=== PATIENT | female | born 1965 | race Caucasian/White ===

== ENCOUNTER 2018-07-03 10:54 | Inpatient (IN) | payer OTHER ==
[2018-07-03] MEDS ORDERED: ONDANSETRON DISINTEGRATING 4 MG TAB ONE (11:03)
[2018-07-03] MEDS ORDERED: NS 1,000 ML IV ONE ×2 (11:19)
[2018-07-03] MEDS ORDERED: ONDANSETRON 4 MG/2 ML VIAL IVP ONE (11:19)
--- NOTE | 2018-07-03 11:19 | EDPHY ---
H & P Stated Complaint: UC - Abd Pain x 3 weeks Source: Patient Exam Limitations: No limitations - Personal History LMP (Females 10-55): Post Menopausal Current Tetanus Diphtheria and Acellular Pertussis (TDAP): Yes - Medical/Surgical History Hx Asthma: No Hx Chronic Respiratory Disease: No Hx Diabetes: No Hx Cardiac Disease: No Hx Renal Disease: No Hx Cirrhosis: No Hx Alcoholism: No Hx HIV/AIDS: No Hx Splenectomy or Spleen Trauma: No Other PMH: Colitis - Social History Smoking Status: Never smoked Time Seen by Provider: 07/03/18 11:11 HPI/ROS: HPI: This is a 53-year-old female who presents with Chief Complaint: Abdominal pain, rectal bleeding Location: Generalized abdomen Quality: Pain and rectal bleeding Duration: Since June 25 Signs and Symptoms: no fever, no nausea, no vomiting, no hematemesis, + blood in stool, no abdominal bloating, + diarrhea, no back pain, no urinary symptoms, no vaginal bleeding/discharge, no indigestion, no chest pain, no shortness of breath Timing: Acute on chronic Severity: Moderate to severe Context: Patient has a history of ulcerative colitis that was diagnosed in her 30s but had been in remission for 7 years recently out of remission last year presents with abdominal pain that is generalized in nature, cramping associated with loose stools approximately 10-15 per day and blood in her stool. Patient was in [place] over the holiday and was seen at [facility] on June 25, 2018. She has her discharge paperwork with her which I reviewed that shows stable laboratory studies she was given IV Solu-Medrol 125 mg and placed on prednisone [address] abdomen and pelvis scan was ordered and showed colitis but no obstruction. Patient reports that she has been taking prednisone 50 mg with no improvement in her symptoms. She called her continuous conveyor screen drier, Dr. Coleman, yesterday who increased her prednisone to 60 mg which her 1st dose was yesterday. Patient reports that she had a terrible night and was up all night with abdominal pain and cramping with 15 bloody stools. She is currently in the process of her insurance company approving Remicade. Comment: ROS: A comprehensive 10 system review of systems is otherwise negative aside from elements mentioned in the history of present illness. MEDICAL/SURGICAL/SOCIAL HISTORY: Medical history: Ulcerative colitis. Does not take any regular medications. Patient is postmenopausal Surgical history: Denies Social history: Nonsmoker. Employed. Family history noncontributory. CONSTITUTIONAL: Nontoxic-appearing, polite and cooperative female, awake and alert, no obvious distress HEENT: Atraumatic and normocephalic, PERRL, EOMI. Nares patent; no rhinorrhea; no nasal mucosal edema. Tympanic membranes clear. Oropharynx clear, no exudate and moist pink mucosa. Airway patent. No lymphadenopathy. No meningismus. Cardiovascular: Normal S1/S2, regular rate, regular rhythm, without murmur rub or gallop. PULMONARY/CHEST: Symmetrical and nontender. Clear to auscultation bilaterally. Good air movement. No accessory muscle usage. ABDOMEN: Soft, nondistended, mild generalized tenderness with hyperactive bowel sounds x4 quadrants, no rebound, no guarding, no peritoneal signs, no masses or organomegaly. No CVAT. EXTREMITIES: 2/2 pulses, strength 5/5, no deformities, no clubbing, no cyanosis or edema. NEUROLOGICAL: no focal neuro deficits. GCS 15. SKIN: Warm and dry, no erythema. no rash. Good capillary refill. (Emma Martin) Constitutional: Initial Vital Signs Temperature (C) 36.7 C 07/03/18 10:57 Heart Rate 95 07/03/18 10:57 Respiratory Rate 18 07/03/18 10:57 Blood Pressure 108/71 07/03/18 10:57 O2 Sat (%) 95 07/03/18 10:57 O2 Delivery Mode Room Air Allergies/Adverse Reactions: gluten [Gluten] Allergy (Intermediate, Verified 07/03/18 10:55) lactose [Lactose] Allergy (Intermediate, Verified 07/03/18 10:55) Penicillins Allergy (Intermediate, Verified 07/03/18 10:55) RASH AND SWELLING Sulfa (Sulfonamide Antibiotics) Allergy (Intermediate, Verified 07/03/18 10:55) EXTREME SWELLING Home Medications: Medication Instructions Recorded predniSONE [predniSONE] 30 mg PO BID@0630,13 07/03/18 Medical Decision Making ED Course/Re-evaluation: Vital signs reviewed and stable upon arrival. Placed on cardiac specialist. IV access and laboratory studies ordered. Will not obtain CT abdomen and pelvis scan as 1 already performed on 06/25. Will have radiology load the CT scan into the system. Given 2 L normal saline, IV morphine 2 mg, IV Zofran 4 mg, IV Solu-Medrol 125 mg 1130: I-STAT labs reviewed and show stable H&H with no acute kidney injury, no electrolyte imbalance. WBC 15 K likely reactive to steroid 1131: ED decision to consult for admission for failed outpatient treatment with ulcerative colitis flare. Spoke with Denise who kindly agrees to admit patient under the care of Dr. Cervantes. This patient was seen under the supervision of my secondary supervising physician. I evaluated care for this patient independently. Discussed this patient with Dr. Ashley who did not see the patient. (Emma Martin) I did not see this patient while she was in the emergency department. However her care was discussed with the PA while the patient was in the department. I agree with treatment plan and management (Florentino Ashley) Differential Diagnosis: Abdominal pain including but not limited to appendicitis, cholecystitis, gastritis and urinary tract infection. (Emma Martin) - Data Points Laboratory Results: Laboratory Results 07/03/18 11:20 07/03/18 11:20 07/03/18 07/03/18 07/03/18 11:24 11:20 11:20 WBC RBC Hgb POC Hgb 14.3 gm/dL gm/dL (12.6-16.3) Hct POC Hct 42 % % (38-47) MCV MCH MCHC RDW Plt Count MPV Neut % (Auto) Lymph % (Auto) Green % (Auto) Eos % (Auto) Baso % (Auto) Nucleat RBC Rel Count Absolute Neuts (auto) Absolute Lymphs (auto) Absolute Monos (auto) Absolute Eos (auto) Absolute Basos (auto) Absolute Nucleated RBC Immature Gran % Seg Neutrophils % Band Neutrophils % Lymphocytes % Monocytes % Eosinophils % Basophils % Metamyelocytes % Myelocytes % Promyelocytes % Blast Cells % Immature Gran # Absolute Seg Neuts Absolute Band Neuts Absolute Lymphocytes Absolute Monocytes Absolute Eosinophils Absolute Basophils Absolute Metamyelocyte Absolute Myelocytes Absolute Promyelocytes Absolute Plasma Cells Nucleated RBCs Absolute Blast Cells Plasma Cells % Platelet Estimate POC Sodium 135 mEq/L mEq/L (135-145) Sodium 133 mEq/L L mEq/L (135-145) POC Potassium 4.5 mEq/L mEq/L (3.3-5.0) Potassium 4.6 mEq/L mEq/L (3.5-5.2) POC Chloride 101 mEq/L mEq/L (97-110) Chloride 103 mEq/L mEq/L (97-110) Carbon Dioxide 23 mEq/l mEq/l (22-31) Anion Gap 7 mEq/L mEq/L (6-14) POC BUN 9 mg/dL mg/dL (7-23) BUN 11 mg/dL mg/dL (7-23) Creatinine 0.7 mg/dL mg/dL (0.6-1.0) POC Creatinine 0.6 mg/dL mg/dL (0.6-1.0) Estimated GFR > 60 Glucose 125 mg/dL H mg/dL (70-100) POC Glucose 129 mg/dL H mg/dL (70-100) Calcium 8.6 mg/dL mg/dL (8.5-10.4) Total Bilirubin 0.5 mg/dL mg/dL (0.1-1.4) Conjugated Bilirubin 0.3 mg/dL mg/dL (0.0-0.5) Unconjugated Bilirubin 0.2 mg/dL mg/dL (0.0-1.1) AST 19 IU/L IU/L (14-46) ALT 23 IU/L IU/L (9-52) Alkaline Phosphatase 49 IU/L IU/L (38-126) Total Protein 6.1 g/dL L g/dL (6.3-8.2) Albumin 3.2 g/dL L g/dL (3.5-5.0) Lipase 19 IU/L L IU/L (23-300) Beta HCG, Qual NEGATIVE 07/03/18 11:20 WBC 15.28 10^3/uL H 10^3/uL (3.80-9.50) RBC 4.34 10^6/uL 10^6/uL (4.18-5.33) Hgb 13.5 g/dL g/dL (12.6-16.3) POC Hgb Hct 40.0 % % (38.0-47.0) POC Hct MCV 92.2 fL fL (81.5-99.8) MCH 31.1 pg pg (27.9-34.1) MCHC 33.8 g/dL g/dL (32.4-36.7) RDW 11.7 % % (11.5-15.2) Plt Count 331 10^3/uL 10^3/uL (150-400) MPV 8.6 fL L fL (8.7-11.7) Neut % (Auto) Not Reported Lymph % (Auto) Not Reported Green % (Auto) Not Reported Eos % (Auto) Not Reported Baso % (Auto) Not Reported Nucleat RBC Rel Count Not Reported Absolute Neuts (auto) Not Reported Absolute Lymphs (auto) Not Reported Absolute Monos (auto) Not Reported Absolute Eos (auto) Not Reported Absolute Basos (auto) Not Reported Absolute Nucleated RBC Not Reported Immature Gran % Not Reported Seg Neutrophils % 85.9 % % Band Neutrophils % 4.0 % % Lymphocytes % 2.0 % % Monocytes % 8.1 % % Eosinophils % 0.0 % % Basophils % 0.0 % % Metamyelocytes % 0.0 % % Myelocytes % 0.0 % % Promyelocytes % 0.0 % % Blast Cells % 0.0 % % Immature Gran # Not Reported Absolute Seg Neuts 13.13 10^3/uL H 10^3/uL (1.70-6.50) Absolute Band Neuts 0.61 10^3/uL 10^3/uL (0.00-0.70) Absolute Lymphocytes 0.31 10^3/uL L 10^3/uL (1.00-3.00) Absolute Monocytes 1.24 10^3/uL H 10^3/uL (0.30-0.80) Absolute Eosinophils 0.00 10^3/uL L 10^3/uL (0.03-0.40) Absolute Basophils 0.00 10^3/uL L 10^3/uL (0.02-0.10) Absolute Metamyelocyte 0.00 10^3/mL 10^3/mL (0.00-0.00) Absolute Myelocytes 0.00 10^3/mL 10^3/mL (0.00-0.00) Absolute Promyelocytes 0.00 10^3/uL 10^3/uL (0.00-0.00) Absolute Plasma Cells 0.00 10^3/uL 10^3/uL (0.00-0.00) Nucleated RBCs 0 /100 WBC /100 WBC (0-0) Absolute Blast Cells 0.00 10^3/uL 10^3/uL (0.00-0.00) Plasma Cells % 0.0 % % Platelet Estimate ADEQUATE (ADEQ) POC Sodium Sodium POC Potassium Potassium POC Chloride Chloride Carbon Dioxide Anion Gap POC BUN BUN Creatinine POC Creatinine Estimated GFR Glucose POC Glucose Calcium Total Bilirubin Conjugated Bilirubin Unconjugated Bilirubin AST ALT Alkaline Phosphatase Total Protein Albumin Lipase Beta HCG, Qual Medications Given: Discontinued Medications Sodium Chloride (Ns) 1,000 mls @ 0 mls/hr IV EDNOW ONE; Wide Open PRN Reason: Protocol Stop: 07/03/18 11:20 Last Admin: 07/03/18 11:30 Dose: 1,000 mls Sodium Chloride (Ns) 1,000 mls @ 0 mls/hr IV EDNOW ONE; Wide Open PRN Reason: Protocol Stop: 07/03/18 11:20 Last Admin: 07/03/18 11:37 Dose: 1,000 mls Methylprednisolone Sodium Succinate (Solu-Medrol) 125 mg IVP EDNOW ONE Stop: 07/03/18 11:21 Last Admin: 07/03/18 11:30 Dose: 125 mg Morphine Sulfate (Morphine) 2 mg IVP EDNOW ONE Stop: 07/03/18 11:20 Last Admin: 07/03/18 11:30 Dose: 2 mg Ondansetron HCl (Zofran) 4 mg IVP EDNOW ONE Stop: 07/03/18 11:20 Last Admin: 07/03/18 11:30 Dose: 4 mg Point of Care Test Results: Chemistry 07/03/18 11:24 POC Sodium 135 mEq/L mEq/L (135-145) POC Potassium 4.5 mEq/L mEq/L (3.3-5.0) POC Chloride 101 mEq/L mEq/L (97-110) POC BUN 9 mg/dL mg/dL (7-23) POC Creatinine 0.6 mg/dL mg/dL (0.6-1.0) POC Glucose 129 mg/dL H mg/dL (70-100) ISTAT H&H 07/03/18 11:24 POC Hgb 14.3 gm/dL gm/dL (12.6-16.3) POC Hct 42 % % (38-47) Departure - Departure Disposition: [facility] In[facility] Acute Clinical Impression: Failure of outpatient treatment Ulcerative colitis, acute Qualifiers: Digestive disease complication type: with rectal bleeding Qualified Code(s): K51.911 - Ulcerative colitis, unspecified with rectal bleeding Condition: Fair
[2018-07-03] MEDS ORDERED: methylPREDNISolone SOD SUCC 125 MG/2 ML VIAL IVP ONE (11:20)
[2018-07-03 11:34] LABS: PLATELET COUNT 331 10^3/uL (150-400)
[2018-07-03] MEDS ORDERED: ONDANSETRON 4 MG/2 ML VIAL IVP PRN (13:53)
[2018-07-03] MEDS ORDERED: ACETAMINOPHEN 325 MG TAB PO PRN (13:53)
[2018-07-03] MEDS ORDERED: PROMETHAZINE HCL 25 MG/ML INJ IVP PRN (13:53)
[2018-07-03] MEDS ORDERED: HYDROmorphONE/DILAUDID 1 MG/ML INJ IVP PRN (13:53)
[2018-07-03] MEDS ORDERED: PROMETHAZINE HCL 25 MG TAB PO PRN (13:53)
[2018-07-03] MEDS ORDERED: HYDROCODONE/APAP 5/325 TAB PO PRN (13:53)
--- NOTE | 2018-07-03 15:10 | PDGENHP ---
History and Physical - Chief Complaint abdominal pain, bloody stool - History of Present Illness 53 yo female with h/o ulcerative colitis presents to ED with frequent bloody stools and abdominal pain. She was diagnosed with UC in her 30's. She spent several years in remission, but has had recurrent symptoms, most recently starting while on vacation in [place]. She was seen in an ED there and started on oral Prednisone. Upon return, she followed up with her power washer, Dr. Coleman, who increased her Prednisone to 30 mg twice daily. She continues to have multiple bloody stools. She denies fevers or chills. She denies vomiting, though has a bit of nausea. She has plans to start Humira soon, but aims to get a 2nd opinion at [facility] ([place], [place]) and has an appointment scheduled for next week. In the ED, she received 125 mg IV solumedrol and notes some improvement in her pain and stool frequency. She is admitted for further management. History Information - Allergies/Home Medication List Allergies/Adverse Reactions: gluten [Gluten] Allergy (Intermediate, Verified 07/03/18 10:55) lactose [Lactose] Allergy (Intermediate, Verified 07/03/18 10:55) Penicillins Allergy (Intermediate, Verified 07/03/18 10:55) RASH AND SWELLING Sulfa (Sulfonamide Antibiotics) Allergy (Intermediate, Verified 07/03/18 10:55) EXTREME SWELLING Home Medications: predniSONE [predniSONE] 30 mg PO BID@0630,13 07/03/18 [Last Taken 07/03/18 06: 30 30 MG] I have personally reviewed and updated: family history, medical history, social history, surgical history - Past Medical History Additional medical history: chronic blepharitis - Surgical History Reports: no pertinent surgical hx - Family History Positive for: non-pertinent - Social History Smoking Status: Never smoked Alcohol Use: None Drug Use: None Additional social history: Lives independently. 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 Review of Systems Review of Systems: ROS: 10pt was reviewed & negative except for what was stated in HPI & below Physical Exam Physical Exam: Temp Pulse Resp BP Pulse Ox 36.9 C 83 16 134/59 H 93 07/03/18 13:53 07/03/18 13:53 07/03/18 13:53 07/03/18 13:53 07/03/18 13:53 Constitutional: no apparent distress Eyes: PERRL Ears, Nose, Mouth, Throat: moist mucous membranes Cardiovascular: regular rate and rhythym, systolic murmur Respiratory: no respiratory distress, clear to auscultation Gastrointestinal: normoactive bowel sounds, other (soft, mild distention, mild TTP diffusely, no r/r/g, +BS) Skin: warm Musculoskeletal: full muscle strength Neurologic: AAOx3 Psychiatric: interacting appropriately Lab Data & Imaging Review 07/03/18 11:20 07/03/18 11:20 WBC 15.28 10^3/uL (3.80-9.50) H 07/03/18 11:20 RBC 4.34 10^6/uL (4.18-5.33) 07/03/18 11:20 Hgb 13.5 g/dL (12.6-16.3) 07/03/18 11:20 POC Hgb 14.3 gm/dL (12.6-16.3) 07/03/18 11:24 Hct 40.0 % (38.0-47.0) 07/03/18 11:20 POC Hct 42 % (38-47) 07/03/18 11:24 MCV 92.2 fL (81.5-99.8) 07/03/18 11:20 MCH 31.1 pg (27.9-34.1) 07/03/18 11:20 MCHC 33.8 g/dL (32.4-36.7) 07/03/18 11:20 RDW 11.7 % (11.5-15.2) 07/03/18 11:20 Plt Count 331 10^3/uL (150-400) 07/03/18 11:20 MPV 8.6 fL (8.7-11.7) L 07/03/18 11:20 Neut % (Auto) Not Reported 07/03/18 11:20 Lymph % (Auto) Not Reported 07/03/18 11:20 Emery % (Auto) Not Reported 07/03/18 11:20 Eos % (Auto) Not Reported 07/03/18 11:20 Baso % (Auto) Not Reported 07/03/18 11:20 Nucleat RBC Rel Count Not Reported 07/03/18 11:20 Absolute Neuts (auto) Not Reported 07/03/18 11:20 Absolute Lymphs (auto) Not Reported 07/03/18 11:20 Absolute Monos (auto) Not Reported 07/03/18 11:20 Absolute Eos (auto) Not Reported 07/03/18 11:20 Absolute Basos (auto) Not Reported 07/03/18 11:20 Absolute Nucleated RBC Not Reported 07/03/18 11:20 Immature Gran % Not Reported 07/03/18 11:20 Seg Neutrophils % 85.9 % 07/03/18 11:20 Band Neutrophils % 4.0 % 07/03/18 11:20 Lymphocytes % 2.0 % 07/03/18 11:20 Monocytes % 8.1 % 07/03/18 11:20 Eosinophils % 0.0 % 07/03/18 11:20 Basophils % 0.0 % 07/03/18 11:20 Metamyelocytes % 0.0 % 07/03/18 11:20 Myelocytes % 0.0 % 07/03/18 11:20 Promyelocytes % 0.0 % 07/03/18 11:20 Blast Cells % 0.0 % 07/03/18 11:20 Immature Gran # Not Reported 07/03/18 11:20 Absolute Seg Neuts 13.13 10^3/uL (1.70-6.50) H 07/03/18 11:20 Absolute Band Neuts 0.61 10^3/uL (0.00-0.70) 07/03/18 11:20 Absolute Lymphocytes 0.31 10^3/uL (1.00-3.00) L 07/03/18 11:20 Absolute Monocytes 1.24 10^3/uL (0.30-0.80) H 07/03/18 11:20 Absolute Eosinophils 0.00 10^3/uL (0.03-0.40) L 07/03/18 11:20 Absolute Basophils 0.00 10^3/uL (0.02-0.10) L 07/03/18 11:20 Absolute Metamyelocyte 0.00 10^3/mL (0.00-0.00) 07/03/18 11:20 Absolute Myelocytes 0.00 10^3/mL (0.00-0.00) 07/03/18 11:20 Absolute Promyelocytes 0.00 10^3/uL (0.00-0.00) 07/03/18 11:20 Absolute Plasma Cells 0.00 10^3/uL (0.00-0.00) 07/03/18 11:20 Nucleated RBCs 0 /100 WBC (0-0) 07/03/18 11:20 Absolute Blast Cells 0.00 10^3/uL (0.00-0.00) 07/03/18 11:20 Plasma Cells % 0.0 % 07/03/18 11:20 Platelet Estimate ADEQUATE (ADEQ) 07/03/18 11:20 POC Sodium 135 mEq/L (135-145) 07/03/18 11:24 Sodium 133 mEq/L (135-145) L 07/03/18 11:20 POC Potassium 4.5 mEq/L (3.3-5.0) 07/03/18 11:24 Potassium 4.6 mEq/L (3.5-5.2) 07/03/18 11:20 POC Chloride 101 mEq/L (97-110) 07/03/18 11:24 Chloride 103 mEq/L (97-110) 07/03/18 11:20 Carbon Dioxide 23 mEq/l (22-31) 07/03/18 11:20 Anion Gap 7 mEq/L (6-14) 07/03/18 11:20 POC BUN 9 mg/dL (7-23) 07/03/18 11:24 BUN 11 mg/dL (7-23) 07/03/18 11:20 Creatinine 0.7 mg/dL (0.6-1.0) 07/03/18 11:20 POC Creatinine 0.6 mg/dL (0.6-1.0) 07/03/18 11:24 Estimated GFR > 60 07/03/18 11:20 Glucose 125 mg/dL (70-100) H 07/03/18 11:20 POC Glucose 129 mg/dL (70-100) H 07/03/18 11:24 Calcium 8.6 mg/dL (8.5-10.4) 07/03/18 11:20 Total Bilirubin 0.5 mg/dL (0.1-1.4) 07/03/18 11:20 Conjugated Bilirubin 0.3 mg/dL (0.0-0.5) 07/03/18 11:20 Unconjugated Bilirubin 0.2 mg/dL (0.0-1.1) 07/03/18 11:20 AST 19 IU/L (14-46) 07/03/18 11:20 ALT 23 IU/L (9-52) 07/03/18 11:20 Alkaline Phosphatase 49 IU/L (38-126) 07/03/18 11:20 Total Protein 6.1 g/dL (6.3-8.2) L 07/03/18 11:20 Albumin 3.2 g/dL (3.5-5.0) L 07/03/18 11:20 Lipase 19 IU/L (23-300) L 07/03/18 11:20 Beta HCG, Qual NEGATIVE 07/03/18 11:20 Assessment & Plan Assessment: Failure of outpatient treatment (Acute) Ulcerative colitis, acute (Acute)
--- NOTE | 2018-07-03 17:40 | PDMN ---
Medical Necessity Medical necessity: Pt meets inpt criteria per MD order and [facility] M-565, Inflammatory Bowel Disease, A-2 days. 53 y/o w/hx ulcerative colitis presents w/ frequent and persistent bloody stools and abd pain, admitted w/acute ulc colitis flare w/failure of outpt treatment. IV solumedrol, GI consult. Est LOS> 2MN for management of UC flare despite treatment in out setting.
[2018-07-03] MEDS: methylPREDNISolone SOD SUCC 125 MG/2 ML VIAL IVP SCH ×2 (18:15→23:26)
[2018-07-04 05:25] LABS: PLATELET COUNT 290 10^3/uL (150-400)
[2018-07-04] MEDS: methylPREDNISolone SOD SUCC 125 MG/2 ML VIAL IVP SCH ×4 (06:18→23:10)
--- NOTE | 2018-07-04 10:27 | ASMTCMCOM ---
CM Note CM Note Notes: Pt is a 53 y/o female admitted for bloody stools and abdominal pain. Pt has a hx of ulcerative colitis. Pt will most likely d/c independent when medically stable. GI has been consulted. No therapies ordered at this time. CM available for changes. Plan: Independent Date Signed: 07/04/2018 10:26 AM Electronically Signed By:NAVJOT Rojas
--- NOTE | 2018-07-04 15:13 | HOSPPROG ---
Hospitalist Progress Note Assessment/Plan: A&P: Acute UC flare - Some improvement, less blood but still frequent watery stools. GI PCR neg. -Cont Solumedrol, IVF's, pain control -GI consult pending. Leukocytosis - suspect related to recent steroid use plus possible stress response to above, afebrile. Follow Full code Dispo - cont inpt Subjective: Pt feels much better, but still having frequent watery stools, less blood. Tolerating po and taking quite a bit of liquids. Less pain. No fevers. No N/V. Objective: Vital Signs Temp Pulse Resp BP Pulse Ox 36.4 C 77 16 125/69 H 94 07/04/18 12:00 07/04/18 12:00 07/04/18 12:00 07/04/18 12:00 07/04/18 12:00 Microbiology 07/03/18 18:22 Gastrointestinal Tract Panel (PCR) - Final Stool No Organism Detected By Pcr Laboratory Results 07/04/18 05:10 07/03/18 07/04/18 07/05/18 05:59 05:59 05:59 Intake Total 3530 375 Balance 3530 375 - Physical Exam Constitutional: no apparent distress Eyes: PERRL Ears, Nose, Mouth, Throat: moist mucous membranes Cardiovascular: regular rate and rhythym, no murmur, rub, or gallop Respiratory: no respiratory distress, clear to auscultation Gastrointestinal: other (soft, mild distention, mild diffuse TTP, no r/r/g, +BS) Skin: warm Musculoskeletal: full muscle strength Neurologic: AAOx3 Psychiatric: interacting appropriately ICD10 Worksheet Patient Problems: Problems Problem Status Onset Failure of outpatient treatment Acute Ulcerative colitis, acute Acute
[2018-07-04] MEDS ORDERED: NS 1,000 ML IV SCH (15:30)
--- NOTE | 2018-07-04 21:27 | SOAPPROG ---
SOAP Progress Note Assessment/Plan: Assessment: Plan: 07/04/18 21:26 GI note Patient seen and examined .See dictated note for details. Objective: Vital Signs Temp Pulse Resp BP Pulse Ox 36.7 C 74 16 126/72 H 96 07/04/18 19:51 07/04/18 19:51 07/04/18 19:51 07/04/18 19:51 07/04/18 19:51 Microbiology 07/03/18 18:22 Gastrointestinal Tract Panel (PCR) - Final Stool No Organism Detected By Pcr Laboratory Results 07/04/18 05:10 07/03/18 07/04/18 07/05/18 05:59 05:59 05:59 Intake Total 3530 875 Balance 3530 875 ICD10 Worksheet Patient Problems: Problems Problem Status Onset Ulcerative colitis, acute Acute Failure of outpatient treatment Acute
[2018-07-05] MEDS: ONDANSETRON DISINTEGRATING 4 MG TAB PO PRN ×2 (05:29→14:01)
[2018-07-05] MEDS: methylPREDNISolone SOD SUCC 125 MG/2 ML VIAL IVP SCH ×4 (05:30→23:21)
[2018-07-05 06:17] LABS: PLATELET COUNT 308 10^3/uL (150-400)
--- NOTE | 2018-07-05 10:06 | GCON ---
DATE OF CONSULTATION: 07/04/2018 REFERRING PHYSICIAN: Ksenia Cervantes MD REASON FOR CONSULTATION: Ulcerative colitis flare. CHIEF COMPLAINT: Bloody stools. HISTORY OF PRESENT ILLNESS: The patient is a 53-year-old female with a history of longstanding ulcerative colitis who presents to [facility] with complaints of abdominal pain, as well as bloody stools. The patient was initially diagnosed with ulcerative colitis approximately 20 years ago. She believes that she had pancolitis, however, did have a recent colonoscopy by her hardware engineering manager, which showed significant disease mainly in her left colon. In the past, she has been on mesalamine products, but this has caused her significant diarrhea. She has been on prednisone for multiple months last year with little relief of her symptoms. She was planning to start Humira per her hardware engineering manager. She has not been on immunomodulator therapy. She states she is going to the bathroom multiple times each day and night. She believes it is well above 20 times each day. There is blood in 100% of her bowel movements. She also complains of a crampy pain in her lower quadrants, especially on touch. She believes that going to the bathroom may make this better. She also complains of nausea. Her weight has been stable. Her diarrhea is exacerbated by oral intake. I am being asked by Dr. Cervantes to evaluate the patient in consultation regarding her ulcerative colitis flare. PAST MEDICAL HISTORY: 1. Ulcerative colitis. 2. Chronic blepharitis. PAST SURGICAL HISTORY: . ALLERGIES: Gluten, lactose, penicillin, sulfa. MEDICATIONS: Prednisone 30 mg twice a day. FAMILY HISTORY: No history of inflammatory bowel disease. SOCIAL HISTORY: No history of alcohol or tobacco use. REVIEW OF SYSTEMS: A 12-point comprehensive review of systems was asked. Pertinent positives and negatives per HPI. PHYSICAL EXAM: VITAL SIGNS: Blood pressure 122/75, pulse 90, respirations 12, temperature 36.4. GENERAL: Awake, alert, oriented, in no distress. HEENT: Anicteric. Moist mucosa. NECK: No JVD. CARDIOVASCULAR: Regular rate and rhythm, positive S1, S2. No murmurs or gallops are appreciated. LUNGS: Clear to auscultation bilaterally, without wheezes, rales or rhonchi. ABDOMEN: Mild tenderness, especially in the left lower quadrant, soft. Minimal distention. Positive bowel sounds. No guarding. No rebound. EXTREMITIES: No cyanosis, clubbing, edema. NEUROLOGIC: 2 through grossly intact. PSYCH: Normal affect. SKIN: No rash. LYMPH: No lymphadenopathy. LABORATORY DATA: WBCs 16.57, hemoglobin 12.2, hematocrit 36.1, platelets 290. Sodium 135, potassium 4.5, glucose 125, total bilirubin 0.5, conjugated bilirubin 0.3, AST 19, ALT 23, lipase 19. Beta hCG negative. ASSESSMENT AND PLAN: 1. Diarrhea- with significant blood. C. Dif negative. Suspect ulcerative colitis flare. Has had a gavi outpatient course and has been on high-dose prednisone, with minimal relief of her symptoms. Humira as an outpatient planned. At this time, recommend continue IV steroids for 48, but optimally 72 hours. She has had significant improvement on the IV steroids during her stay. If she does not continue to improve, would consider flexible sigmoidoscopy for evaluation of disease activity, as well as to rule out CMV colitis. Will check a sedimentation rate and CRP. She is C diff negative. Advance diet slowly. Can consider starting loading dose Humira as inpatient. /[id number]/MODL MTDD
--- NOTE | 2018-07-05 13:44 | HOSPPROG ---
Hospitalist Progress Note Assessment/Plan: A&P: Acute UC flare - Some improvement, less blood but still frequent watery stools. GI PCR neg. -Cont Solumedrol, IVF's, pain control -GI consult pending. Leukocytosis - suspect related to recent steroid use plus possible stress response to above, afebrile. Follow Full code Dispo - cont inpt Subjective: Pt had a rough night. Reports increased pain and nausea with some retching, but no vomiting. No more blood in stool, but continues to have watery stools, which she thinks look more like stool today. No fevers. Objective: Vital Signs Temp Pulse Resp BP Pulse Ox 36.3 C 63 16 104/49 L 94 07/05/18 12:00 07/05/18 12:00 07/05/18 12:00 07/05/18 12:00 07/05/18 12:00 Laboratory Results 07/05/18 05:16 07/05/18 05:16 07/04/18 07/05/18 07/06/18 05:59 05:59 05:59 Intake Total 3530 1375 Balance 3530 1375 - Physical Exam Constitutional: no apparent distress Eyes: PERRL Ears, Nose, Mouth, Throat: moist mucous membranes Cardiovascular: regular rate and rhythym Respiratory: no respiratory distress, clear to auscultation Gastrointestinal: other (soft, minimal distention, mild TTP diffusely, no r/r/g , +BS) Skin: warm Musculoskeletal: full muscle strength Neurologic: AAOx3 Psychiatric: interacting appropriately ICD10 Worksheet Patient Problems: Problems Problem Status Onset Failure of outpatient treatment Acute Ulcerative colitis, acute Acute
--- NOTE | 2018-07-05 20:20 | SOAPPROG ---
SOAP Progress Note Assessment/Plan: Assessment: Plan: 07/04/18 21:26 GI note Patient seen and examined .See dictated note for details. 07/05/18 20:17 A/P 1. Ulcerative colitis- pancolitis. Failed high patient oral steroids. On IV solumedrol and improving slowly. Recommend to continue IV steroids for 72 hours. Can consider starting Humira as inpatient? D/w patient. She states that she has had testing for the hepatitis, tb? etc. She will try to obtain the results through the [employer] portal. Tolerating diet. Subjective: cc: Follow up colitis Had bad night. No recent BM in morning or afternoon. Objective: Vital Signs Temp Pulse Resp BP Pulse Ox 36.4 C 69 16 128/89 H 97 07/05/18 16:00 07/05/18 16:00 07/05/18 16:00 07/05/18 16:00 07/05/18 16:00 Laboratory Results 07/05/18 05:16 07/05/18 05:16 07/04/18 07/05/18 07/06/18 05:59 05:59 05:59 Intake Total 3530 1375 1999 Balance 3530 1375 1999 Physical Exam - Physical Exam General Appearance: alert, no apparent distress EENT: No scleral icterus (R), No scleral icterus (L) Respiratory: lungs clear, normal breath sounds Cardiac/Chest: regular rate, rhythm Abdomen: non-tender, soft, No distended, No guarding, No rebound Neuro/Psych: alert, normal mood/affect, oriented x 3 ICD10 Worksheet Patient Problems: Problems Problem Status Onset Failure of outpatient treatment Acute Ulcerative colitis, acute Acute
[2018-07-06] MEDS: methylPREDNISolone SOD SUCC 125 MG/2 ML VIAL IVP SCH ×2 (06:27→12:05)
[2018-07-06] MEDS: ONDANSETRON DISINTEGRATING 4 MG TAB PO PRN ×2 (07:31→12:13)
[2018-07-06] MEDS ORDERED: ADALIMUMAB 80 MG/0.8 ML SC ONE (13:11)
--- NOTE | 2018-07-06 13:23 | SOAPPROG ---
SOAP Progress Note Assessment/Plan: Assessment: Ulcerative Colitis. Clinically improving on IV solumedrol Less diarrhea, less blood and less cramping. She has been per-authorized for Humira as an outpatient. She has had negative TB testing and negative testing for HBV. she was scheduled to get her loading dose of Humira on Sunday. Will go ahead and give her loading dose today. D/C IV solumedrol, start on PO prednisone with taper and advance diet. Plan: 1. D/c IV solumderol 2. Start PO prednisone with taper 40 mg a day and taper by 5 mg every 7 days until off. 3. Advance to low residue diet. 4. Loading does of Humira, 160 mg x 1 then 80 mg on day 15 then 40 mg every 2 weeks 5. Patient is scheduled to see PA in our practice this week 6. If tolerating diet and PO prednisone can d/c home 07/06/18 13:16 Subjective: CC: Ulcerative Colitis. Clinically improving on IV solumderol. Less, diarrhea and less cramping Objective: Vital Signs Temp Pulse Resp BP Pulse Ox 36.6 C 63 16 115/79 96 07/06/18 11:26 07/06/18 11:26 07/06/18 11:26 07/06/18 11:26 07/06/18 11:26 Laboratory Results 07/06/18 03:51 07/05/18 05:16 07/05/18 07/06/18 07/07/18 05:59 05:59 05:59 Intake Total 1375 1999 Balance 1375 1999 Physical Exam - Physical Exam General Appearance: alert, no apparent distress Respiratory: lungs clear Cardiac/Chest: regular rate, rhythm Abdomen: normal bowel sounds, non-tender, soft, other (slight distention) Skin: normal color, warm/dry Extremities: non-tender Neuro/Psych: alert, normal mood/affect ICD10 Worksheet Patient Problems: Problems Problem Status Onset Failure of outpatient treatment Acute Ulcerative colitis, acute Acute
[2018-07-06] MEDS: predniSONE 20 MG TAB PO SCH (13:43)
--- NOTE | 2018-07-06 14:36 | HOSPPROG ---
Hospitalist Progress Note Assessment/Plan: 53 yo female with h/o ulcerative colitis presents to ED with frequent bloody stools and abdominal pain. She was diagnosed with UC in her 30's. She spent several years in remission, but has had recurrent symptoms, most recently starting while on vacation in [place]. She was seen in an ED there and started on oral Prednisone. Upon return, she followed up with her tractor sweeper driver, Dr. Coleman, who increased her Prednisone to 30 mg twice daily. She continues to have multiple bloody stools. First encounter, chart reviewed. Discussed her care w Dr Adams. *Acute UC flare - Some improvement, less blood but still frequent watery stools. -GI PCR is neg -one more dose of iv steroids tonight, then on prednisone tomorrow -to start Humira this coming Sunday *hyponatremia -mild *Leukocytosis -multifactorial, steroids and stress induced Full code Dispo - cont inpt Subjective: Paula is hoping the prednisone helps her symptoms, has no complaints. Objective: Vital Signs Temp Pulse Resp BP Pulse Ox 36.6 C 63 16 115/79 96 07/06/18 11:26 07/06/18 11:26 07/06/18 11:26 07/06/18 11:26 07/06/18 11:26 Laboratory Results 07/06/18 03:51 07/05/18 05:16 07/05/18 07/06/18 07/07/18 05:59 05:59 05:59 Intake Total 1375 1999 Balance 1375 1999 - Physical Exam Constitutional: other (thin) Eyes: PERRL Ears, Nose, Mouth, Throat: hearing normal Cardiovascular: regular rate and rhythym Respiratory: no respiratory distress Gastrointestinal: normoactive bowel sounds, soft, non-tender abdomen Skin: warm Musculoskeletal: full muscle strength Neurologic: AAOx3 Psychiatric: interacting appropriately ICD10 Worksheet Patient Problems: Problems Problem Status Onset Failure of outpatient treatment Acute Ulcerative colitis, acute Acute
[2018-07-06] MEDS ORDERED: methylPREDNISolone SOD SUCC 125 MG/2 ML VIAL IVP ONE (18:00)
[2018-07-07] MEDS: predniSONE 20 MG TAB PO SCH (08:51)
--- NOTE | 2018-07-07 08:59 | SOAPPROG ---
SOAP Progress Note Assessment/Plan: Assessment: Ulcerative Colitis. Started PO Prednisone this morning. Had 3 bloody BM's this am but overall feeling better. Plan: 1. Continue PO prednisone with taper 40 mg a day and taper by 5 mg every 7 days until off. Patient had been on 60 mg daily prior to admission. Would like to d/ c on 40 mg if increased problems as an outpatient can increase Prednisone to 60 mg daily. 2. Continue on low residue diet for 1 - 2 weeks. 3. Loading does of Humira to be started at home tomorrow, 160 mg x 1 then 80 mg on day 15 then 40 mg every 2 weeks 4. Ok for discharge. Patient is scheduled to see PA in our practice this week 07/07/18 09:01 Subjective: CC: Ulcerative Colitis Patient feels much better. Still is having some blood with BM's, but less. No abdominal pain or discomfort. Objective: Vital Signs Temp Pulse Resp BP Pulse Ox 36.6 C 58 L 16 114/66 96 07/06/18 19:52 07/06/18 19:52 07/06/18 19:52 07/06/18 19:52 07/06/18 19:52 Laboratory Results 07/06/18 03:51 07/05/18 05:16 07/06/18 07/07/18 07/08/18 05:59 05:59 05:59 Intake Total 1999 Balance 1999 Generic Name Dose Route Start Last Admin Trade Name Freq PRN Reason Stop Dose Admin Acetaminophen 650 mg 07/03/18 13:53 Tylenol PO 12/30/18 13:52 Q4HRS PRN Pain, Mild/Fever, Can Take PO Hydrocodone Bitart/Acetaminophen 1 - 2 tab 07/03/18 13:53 Raymond 5/325 PO 07/13/18 13:52 Q4HRS PRN Pain, Moderate Able to Take PO Hydromorphone HCl 0.2 - 0.4 mg 07/03/18 13:53 Dilaudid IVP 07/13/18 13:52 Q4HRS PRN Pain, Severe Unable to Take PO Ondansetron HCl 4 mg 07/03/18 13:53 Zofran IVP 12/30/18 13:52 Q4HRS PRN Nausea/Vomiting, Can't Take PO Ondansetron HCl 4 mg 07/03/18 13:53 07/06/18 12:13 Zofran Odt PO 12/30/18 13:52 4 mg Q4HRS PRN Administration Nausea/Vomiting, Use 1st Prednisone 40 mg 07/06/18 13:15 07/07/18 08:51 Prednisone PO 01/02/19 13:14 40 mg DAILY DAHLIA Administration Promethazine HCl 6.25 - 12.5 mg 07/03/18 13:53 Phenergan IVP 12/30/18 13:52 Q6HRS PRN Nausea/Vomiting, Use 2nd Promethazine HCl 12.5 - 25 mg 07/03/18 13:53 Phenergan PO 12/30/18 13:52 Q6HRS PRN Nausea/Vomiting, Use 2nd Discontinued Medications Generic Name Dose Route Start Last Admin Trade Name Freq PRN Reason Stop Dose Admin Sodium Chloride 1,000 mls @ 0 mls/hr 07/03/18 11:19 07/03/18 11:30 Ns IV 07/03/18 11:20 1,000 mls EDNOW ONE Administration Protocol Wide Open Sodium Chloride 1,000 mls @ 0 mls/hr 07/03/18 11:19 07/03/18 11:37 Ns IV 07/03/18 11:20 1,000 mls EDNOW ONE Administration Protocol Wide Open Sodium Chloride 1,000 mls @ 100 mls/hr 07/04/18 15:30 07/05/18 10:03 Ns IV 12/31/18 15:29 1,000 mls CONT DAHLIA Administration Methylprednisolone Sodium Succinate 125 mg 07/03/18 11:20 07/03/18 11:30 Solu-Medrol IVP 07/03/18 11:21 125 mg EDNOW ONE Administration Methylprednisolone Sodium Succinate 60 mg 07/03/18 18:00 07/06/18 12:05 Solu-Medrol IVP 12/30/18 17:59 60 mg Q6HRS DAHLIA Administration Methylprednisolone Sodium Succinate 60 mg 07/06/18 18:00 07/06/18 17:48 Solu-Medrol IVP 07/06/18 18:01 60 mg ONCE@1800 ONE Administration Morphine Sulfate 2 mg 07/03/18 11:19 07/03/18 11:30 Morphine IVP 07/03/18 11:20 2 mg EDNOW ONE Administration Ondansetron HCl Confirm 07/03/18 11:03 Zofran Odt Administered 07/03/18 11:04 Dose 4 mg .ROUTE .STK-MED ONE Ondansetron HCl 4 mg 07/03/18 11:19 07/03/18 11:30 Zofran IVP 07/03/18 11:20 4 mg EDNOW ONE Administration Physical Exam - Physical Exam General Appearance: alert, no apparent distress Respiratory: lungs clear, normal breath sounds Cardiac/Chest: regular rate, rhythm Abdomen: normal bowel sounds, non-tender, soft Skin: normal color, warm/dry Neuro/Psych: alert, normal mood/affect, oriented x 3 ICD10 Worksheet Patient Problems: Problems Problem Status Onset Failure of outpatient treatment Acute Ulcerative colitis, acute Acute
[2018-07-07 09:15] VITALS: BP 115/66
--- NOTE | 2018-07-07 09:23 | HOSPPROG ---
Hospitalist Progress Note Assessment/Plan: 53 yo female with h/o ulcerative colitis presents to ED with frequent bloody stools and abdominal pain. She was diagnosed with UC in her 30's. She spent several years in remission, but has had recurrent symptoms, most recently starting while on vacation in [place]. She was seen in an ED there and started on oral Prednisone. Upon return, she followed up with her insulation board calender operator, Dr. Coleman, who increased her Prednisone to 30 mg twice daily. She continues to have multiple bloody stools. *Acute UC flare - Some improvement, less blood but still frequent watery stools. -GI PCR is neg -had 3 loose bloody stools last night -to start Humira this coming Sunday *hyponatremia -mild *Leukocytosis -multifactorial, steroids and stress induced Full code Dispo - dc home, has an appt at [facility] this sun, appreciate Dr Adams Subjective: Paula is wanting to go home, still having loose stools. Objective: Vital Signs Temp Pulse Resp BP Pulse Ox 36.6 C 80 12 115/66 95 07/07/18 08:00 07/07/18 08:00 07/07/18 08:00 07/07/18 08:00 07/07/18 08:00 Laboratory Results 07/06/18 03:51 07/05/18 05:16 07/06/18 07/07/18 07/08/18 05:59 05:59 05:59 Intake Total 1999 Balance 1999 - Physical Exam Constitutional: not in pain, uncomfortable, other (thin) Eyes: PERRL Ears, Nose, Mouth, Throat: hearing normal Cardiovascular: no murmur, rub, or gallop Gastrointestinal: normoactive bowel sounds, soft, non-tender abdomen Skin: warm Musculoskeletal: full muscle strength Neurologic: AAOx3 Psychiatric: interacting appropriately ICD10 Worksheet Patient Problems: Problems Problem Status Onset Failure of outpatient treatment Acute Ulcerative colitis, acute Acute
--- NOTE | 2018-07-07 09:49 | ASMTDCNOTE ---
Case Management Discharge Discharge Order Complete? Answers: Yes Patient to Obtain Answers: via Family Medications Transportation Arranged Answers: Family/Friends Family Notified Answers: Yes Discharge Comments Notes: Discharge orders placed. CM inquired peña/ CHANEL Hester, patient to discharge home independently today with family support. Follow up scheduled with [facility]. CM available if any additional CM needs arise. Date Signed: 07/07/2018 09:48 AM Electronically Signed By:Hien Grant
--- NOTE | 2018-07-07 10:02 | GDS ---
DISCHARGE DIAGNOSES: 1. Ulcerative colitis flare. 2. Hyponatremia. 3. Leukocytosis. CONSULTATION: Dr. Taras Adams. HISTORY OF PRESENT ILLNESS: Briefly, the patient is a very nice 53-year-old female with history of u lcerative colitis. She presented to the emergency room with frequent bloody stools and abdominal richar n. She was diagnosed with UC in her 30s. She has spent many years in remission. She had recurrence of symptoms most recently when she was on vacation in [place]. She ended up in the emergency room an d was started on oral prednisone. She followed up with her customer service representative who increased her pred nisone to 30 mg twice daily, but was having continued multiple stools. She was admitted to [facility], treated with IV steroids with some improvement. She still had some loose stools t raghav. She will be discharged home today and follow up with Dr. Colon. She will start her Humira navya orrow. HOSPITAL COURSE BY PROBLEM: 1. Acute ulcerative colitis flare. Some improvement. To start Humira tomorrow. 2. Hyponatremia, mild. 3. Leukocytosis, multifactorial, associated with steroids and stress induced. DISCHARGE CONDITION: Stable. Blood pressure is 115/66, heart rate of 80, respiratory rate of 12, O2 sats on room air 95%, temperature 36.6 Celsius. MEDICATIONS AT DISCHARGE: Please see the EMR. DISCHARGE INSTRUCTIONS: 1. To continue p.o. prednisone with a taper of 40 mg a day and taper by 5 mg every 7 days until off. If she continues to have increased bloody stool, to call [facility], they may increase her p rednisone to 60 mg daily. 2. Continue a low residue diet for the next 1 to 2 weeks. 3. Her loading dose of Humira is start tomorrow. 4. To call [facility] if she has any further questions. /[id number]/MODL
--- NOTE | 2018-07-07 11:39 | ASDISCHSUM ---
Discharge Information Plan Status:Home with No Needs Medically Cleared to Leave: Discharge Date:07/07/2018 10:51 AM CM D/C Disposition: ADT D/C Disposition:Home, Routine, Self-Care Projected Discharge Date:07/07/2018 10:51 AM Transportation at D/C: Discharge Delay Reason: Follow-Up Date:07/07/2018 10:51 AM Discharge Slot: Final Diagnosis: Placement Information Patient Contact Information Contact Name:VALENTIN Relationship: Address:[address] City:[place] Alternate Phone: [facility]/Zip Code:[place] [address] Email: Financial Information Financial Class:HMO and PPO Plans Primary Plan Desc:[facility] Primary Plan Number:[id number] Secondary Plan Desc: Secondary Plan Number: Assessment Information [facility] CM Progress Note CM Note CM Note Notes: Pt is a 53 y/o female admitted for bloody stools and abdominal pain. Pt has a hx of ulcerative colitis. Pt will most likely d/c independent when medically stable. GI has been consulted. No therapies ordered at this time. CM available for changes. Plan: Independent Date Signed: 07/04/2018 10:26 AM Electronically Signed By:NAVJOT Rojas Case Management Discharge Plan Note Case Management Discharge Discharge Order Complete? Answers: Yes Patient to Obtain Answers: via Family Medications Transportation Arranged Answers: Family/Friends Family Notified Answers: Yes Discharge Comments Notes: Discharge orders placed. CM inquired eulogio Hester RN, patient to discharge home independently today with family support. Follow up scheduled with [facility]. CM available if any additional CM needs arise. Date Signed: 07/07/2018 09:48 AM Electronically Signed By:Hien Grant Intervention Information
== END 2018-07-07 10:51 | disposition home or self-care (01) | DRG 386 ==
LOC: F3E 13:00
PROVIDERS: ADMIT Hospitalist; ATTEND Hospitalist
DX: K51.911 Ulcerative colitis, unspecified with rectal bleeding (principal); E87.1 Hypo-osmolality and hyponatremia; E86.9 Volume depletion, unspecified
CPT/HCPCS: 82435-PO; 82565-PO; 82947-PO; 84132-PO; 84295-PO; 84520-PO; 85014-ER; 86141-90; 96374; J0135; J2270; J2405; J2930; J7512

== ENCOUNTER 2018-07-13 20:12 | Inpatient (IN) | payer OTHER ==
[2018-07-13] MEDS ORDERED: NS 1,000 ML IV ONE ×2 (20:33→20:38)
--- NOTE | 2018-07-13 20:36 | EDPHY ---
H & P Stated Complaint: lower abd pain bleeding rectal Time Seen by Provider: 07/13/18 20:35 HPI/ROS: HPI CHIEF COMPLAINT: Abdominal pain, bloody diarrhea. HISTORY OF PRESENT ILLNESS: 53-year-old female, history of ulcer colitis, recently admitted to the hospital discharge on July 03 for ulcer colitis flare. She presents back to the emergency room worsening bloody stools, mucousy , diarrhea, abdominal discomfort. Patient denies any fever, denies vomiting. She does complain of generalized weakness. Patient is on prednisone. Past Medical History: Pulse of colitis, hyponatremia, leukocytosis Past Surgical History: No recent surgery Social History: Denies drugs alcohol tobacco. Family History: Noncontributory ROS REVIEW OF SYSTEMS: 10 Systems were reviewed and negative with the exception of the elements mentioned in the history of present illness. Exam Constitutional nontoxic no acute distress, triage nursing summary reviewed, vital signs reviewed, awake/alert. Eyes normal conjunctivae and sclera, EOMI, PERRLA. HENT normal inspection, atraumatic, moist mucus membranes, no epistaxis, neck supple/ no meningismus, no raccoon eyes. Respiratory clear to auscultation bilaterally, normal breath sounds, no respiratory distress, no wheezing. Cardiovascular rate normal, regular rhythm, no murmur, no edema, distal pulses normal. Gastrointestinal soft, non-tender, no rebound, no guarding, normal bowel sounds, no distension, no pulsatile mass. Genitourinary no CVA tenderness. Musculoskeletal no midline vertebral tenderness, full range of motion, no calf swelling, no tenderness of extremities, no meningismus, good pulses, neurovascularly intact. Skin pink, warm, & dry, no rash, skin atraumatic. Neurologic awake, alert and oriented x 3, AAOx3, moves all 4 extremities equally, motor intact, sensory intact, CN II-XII intact, normal cerebellar, normal vision, normal speech. Psychiatric normal mood/affect. Heme/Lymph/Immune no lymphadenopathy. Differential Diagnosis: Differential diagnosis includes but is not limited to and in no particular order: Ulcerative colitis flare, Bowel obstruction, appendicitis, gallbladder disease, diverticulitis, colitis, enteritis, perforated viscus, gastritis, GERD, esophagitis, urinary tract infection, pyelonephritis, kidney stones Medical Decision Making: Plan for this patient IV establishment IV fluid bolus , IV morphine for pain control IV Zofran for nausea, basic blood work, most likely hospital admission re-evaluation. Re-evaluation: 2236: Plan for this patient admission to the hospital for bloody diarrhea concerning for ulcerative colitis. I spoke with the hospitalist service Dr. Dawn, requested a CT scan abdomen pelvis with IV contrast. I have ordered this. This is being done to ongoing abdominal pain, bloody stools. Despite being on prednisone. She did not have a CT scan last time she was here. Blood work is reassuring. Does have a bandemia on her white blood cell count. Plan for admission for most likely ulcer colitis flare. CT scan abdomen pelvis with IV contrast ordered in the emergency room at the request the hospitalist service Dr. Dawn To follow up CT results. CT scan abdomen pelvis with IV contrast called to me by Dr. Tellez, shows colitis mid transverse through descending Significant colitis. New free air no free fluid. Source: Patient - Personal History LMP (Females 10-55): Unknown Current Tetanus/Diphtheria Vaccine: Yes Current Tetanus Diphtheria and Acellular Pertussis (TDAP): Yes - Medical/Surgical History Hx Asthma: No Hx Chronic Respiratory Disease: No Hx Diabetes: No Hx Cardiac Disease: No Hx Renal Disease: No Hx Cirrhosis: No Hx Alcoholism: No Hx HIV/AIDS: No Hx Splenectomy or Spleen Trauma: No Other PMH: Ulcerative colitis - Social History Smoking Status: Never smoked Constitutional: Initial Vital Signs Temperature (C) 36.8 C 07/13/18 20:17 Heart Rate 78 07/13/18 20:17 Respiratory Rate 18 07/13/18 20:17 Blood Pressure 110/60 07/13/18 20:17 O2 Sat (%) 98 07/13/18 20:17 O2 Delivery Mode Room Air Allergies/Adverse Reactions: gluten [Gluten] Allergy (Intermediate, Verified 07/03/18 10:55) lactose [Lactose] Allergy (Intermediate, Verified 07/03/18 10:55) Penicillins Allergy (Intermediate, Verified 07/03/18 10:55) RASH AND SWELLING Sulfa (Sulfonamide Antibiotics) Allergy (Intermediate, Verified 07/03/18 10:55) EXTREME SWELLING Home Medications: Medication Instructions Recorded Adalimumab [Humira] 160 mg SC ONCE 07/13/18 Ferrous Sulfate [Ferrous Sulf 325 325 mg PO DAILY 07/13/18 MG (*)] predniSONE 40 mg PO DAILY 07/13/18 Medical Decision Making - Diagnostics Imaging Results: Imaging Impressions Abdomen X-Ray 07/14/18 06:00 Impression: 1. Features of ulcerative colitis within the descending and sigmoid colon, with secondary moderately distended small bowel and proximal colonic loops. - Data Points Laboratory Results: Laboratory Results 07/14/18 03:50 07/14/18 03:50 Microbiology Results: MICROBIOLOGY 07/14/18 12:46 Stool Gastrointestinal Tract Panel (PCR) - Final E.coli Enteropathogenic(Epec) Medications Given: Hydromorphone HCl (Dilaudid) 0.2 - 0.4 mg IVP Q4HRS PRN PRN Reason: Pain, Severe Unable to Take PO Stop: 07/23/18 22:42 Last Admin: 07/14/18 01:09 Dose: 0.4 mg Sodium Chloride (Ns) 1,000 mls @ 100 mls/hr IV CONT DAHLIA Stop: 01/09/19 23:29 Last Admin: 07/14/18 20:06 Dose: 1,000 mls Ceftriaxone Sodium/Dextrose (Rocephin 1 Gm (Premix)) 50 mls @ 100 mls/hr IV DAILY DAHLIA PRN Reason: Protocol Stop: 08/13/18 15:29 Last Admin: 07/14/18 15:25 Dose: 50 mls Methylprednisolone Sodium Succinate (Solu-Medrol) 40 mg IVP Q8HRS DAHLIA Stop: 01/10/19 09:23 Last Admin: 07/14/18 22:00 Dose: 40 mg Ondansetron HCl (Zofran) 4 mg IVP Q4HRS PRN PRN Reason: Nausea/Vomiting, Can't Take PO Stop: 01/09/19 22:42 Last Admin: 07/14/18 14:35 Dose: 4 mg Ondansetron HCl (Zofran Odt) 4 mg PO Q4HRS PRN PRN Reason: Nausea/Vomiting, Use 1st Stop: 01/09/19 22:42 Last Admin: 07/14/18 21:49 Dose: 4 mg Oxycodone HCl (Oxycodone Ir) 5 - 10 mg PO Q3HRS PRN PRN Reason: Pain, Severe Able to Take PO Stop: 07/23/18 22:42 Last Admin: 07/14/18 04:55 Dose: 10 mg Discontinued Medications Sodium Chloride (Ns) 1,000 mls @ 0 mls/hr IV EDNOW ONE; Wide Open PRN Reason: Protocol Stop: 07/13/18 20:34 Last Admin: 07/13/18 20:39 Dose: 1,000 mls Sodium Chloride (Ns) 1,000 mls @ 0 mls/hr IV EDNOW ONE; Wide Open PRN Reason: Protocol Stop: 07/13/18 20:39 Last Admin: 07/13/18 20:39 Dose: 1,000 mls Methylprednisolone Sodium Succinate (Solu-Medrol) 125 mg IVP EDNOW ONE Stop: 07/13/18 23:18 Last Admin: 07/13/18 23:32 Dose: 125 mg Morphine Sulfate (Morphine) 4 mg IVP EDNOW ONE Stop: 07/13/18 20:40 Last Admin: 07/13/18 20:42 Dose: 4 mg Ondansetron HCl (Zofran) 4 mg IVP EDNOW ONE Stop: 07/13/18 20:40 Last Admin: 07/13/18 20:42 Dose: 4 mg Departure - Departure Disposition: [facility] Inpatient Acute Clinical Impression: Ulcerative colitis, acute Qualifiers: Digestive disease complication type: without complication Qualified Code(s): K51.90 - Ulcerative colitis, unspecified, without complications Condition: Fair
[2018-07-13] MEDS ORDERED: ONDANSETRON 4 MG/2 ML VIAL IVP ONE (20:39)
[2018-07-13 20:48] LABS: PLATELET COUNT 308 10^3/uL (150-400)
[2018-07-13 21:00] LABS: INR 1.2 (0.83-1.16); PROTIME(PATIENT) 15.4 SEC (12.0-15.0)
[2018-07-13] MEDS ORDERED: IOPAMIDOL (ISOVUE 370) 100 ML BTL IV ONE (22:29)
[2018-07-13] MEDS ORDERED: HYDROmorphONE/DILAUDID 1 MG/ML INJ IVP PRN (22:43)
[2018-07-13] MEDS ORDERED: methylPREDNISolone SOD SUCC 125 MG/2 ML VIAL IVP ONE (23:17)
--- NOTE | 2018-07-14 00:17 | PDGENHP ---
History and Physical - Chief Complaint Hematochezia - History of Present Illness 53 yo F w/ UC presents with hematochezia. The patient has a long history of UC ( ~20 years). She was admitted here on 07/03/18 for management of ongoing flare. The flare started in May while she was on vacation in [place]. She was admitted here, treated with high dose steroids, and discharged. She went home with 1 day of prednisone 60 mg that was then subsequently lowered to 40 mg daily. Her last dose of this was this morning. She also started Humira therapy on Sunday of this week. Despite this she continues to have severe abdominal pain, bloating, hematochezia, and difficulty toleration PO intake. CT scan obtained in the ED demonstrates extensive colitis. She is hemodynamically stable at this time. Her pain is reasonably well controlled with IV analgesia. Case discussed with ED physician Dr. An; records reviewed and summarized above. History Information - Allergies/Home Medication List Allergies/Adverse Reactions: gluten [Gluten] Allergy (Intermediate, Verified 07/03/18 10:55) lactose [Lactose] Allergy (Intermediate, Verified 07/03/18 10:55) Penicillins Allergy (Intermediate, Verified 07/03/18 10:55) RASH AND SWELLING Sulfa (Sulfonamide Antibiotics) Allergy (Intermediate, Verified 07/03/18 10:55) EXTREME SWELLING Home Medications: Adalimumab [Humira] 160 mg SC ONCE 07/13/18 [Last Taken 07/09/18] Ferrous Sulfate [Ferrous Sulf 325 MG (*)] 325 mg PO DAILY 07/13/18 [Last Taken 07/13/18] predniSONE 40 mg PO DAILY 07/13/18 [Last Taken 07/13/18] I have personally reviewed and updated: family history, medical history - Past Medical History Additional medical history: chronic blepharitis. UC - Surgical History Additional surgical history: . D&C - Family History Additional family history: Cousin had UC requring partial colectomy. Grandmother possibly had UC - Social History Smoking Status: Never smoked Additional social history: Lives independently. 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 Review of Systems Review of Systems: ROS: 10pt was reviewed & negative except for what was stated in HPI & below Physical Exam Physical Exam: Temp Pulse Resp BP Pulse Ox 36.8 C 84 18 113/63 96 07/13/18 20:17 01/19/19 23:35 07/13/18 23:35 07/13/18 23:35 07/13/18 23:35 Constitutional: appears nourished, uncomfortable Eyes: PERRL, EOMI Ears, Nose, Mouth, Throat: moist mucous membranes, no oral mucosal ulcers Cardiovascular: regular rate and rhythym, no murmur, rub, or gallop Respiratory: no respiratory distress, clear to auscultation Gastrointestinal: tenderness (Diffuse), distension, No guarding, No rebound Skin: warm, normal color Musculoskeletal: full muscle strength, no muscle tenderness Neurologic: AAOx3, CN II-XII Intact Psychiatric: interacting appropriately, not anxious Lab Data & Imaging Review 07/13/18 20:35 07/13/18 20:35 WBC 7.76 10^3/uL (3.80-9.50) 07/13/18 20:35 RBC 3.80 10^6/uL (4.18-5.33) L 07/13/18 20:35 Hgb 11.6 g/dL (12.6-16.3) L 07/13/18 20:35 Hct 34.1 % (38.0-47.0) L 07/13/18 20:35 MCV 89.7 fL (81.5-99.8) 07/13/18 20:35 MCH 30.5 pg (27.9-34.1) 07/13/18 20:35 MCHC 34.0 g/dL (32.4-36.7) 07/13/18 20:35 RDW 11.7 % (11.5-15.2) 07/13/18 20:35 Plt Count 308 10^3/uL (150-400) 07/13/18 20:35 MPV 8.5 fL (8.7-11.7) L 07/13/18 20:35 Neut % (Auto) Not Reported 07/13/18 20:35 Lymph % (Auto) Not Reported 07/13/18 20:35 Preble % (Auto) Not Reported 07/13/18 20:35 Eos % (Auto) Not Reported 07/13/18 20:35 Baso % (Auto) Not Reported 07/13/18 20:35 Nucleat RBC Rel Count Not Reported 07/13/18 20:35 Absolute Neuts (auto) Not Reported 07/13/18 20:35 Absolute Lymphs (auto) Not Reported 07/13/18 20:35 Absolute Monos (auto) Not Reported 07/13/18 20:35 Absolute Eos (auto) Not Reported 07/13/18 20:35 Absolute Basos (auto) Not Reported 07/13/18 20:35 Absolute Nucleated RBC Not Reported 07/13/18 20:35 Immature Gran % Not Reported 07/13/18 20:35 Seg Neutrophils % 37.0 % 07/13/18 20:35 Band Neutrophils % 24.0 % 07/13/18 20:35 Lymphocytes % 19.0 % 07/13/18 20:35 Monocytes % 16.0 % 07/13/18 20:35 Eosinophils % 0.0 % 07/13/18 20:35 Basophils % 0.0 % 07/13/18 20:35 Metamyelocytes % 4.0 % 07/13/18 20:35 Myelocytes % 0.0 % 07/13/18 20:35 Promyelocytes % 0.0 % 07/13/18 20:35 Blast Cells % 0.0 % 07/13/18 20:35 Immature Gran # Not Reported 07/13/18 20:35 Absolute Seg Neuts 2.87 10^3/uL (1.70-6.50) 07/13/18 20:35 Absolute Band Neuts 1.86 10^3/uL (0.00-0.70) H 07/13/18 20:35 Absolute Lymphocytes 1.47 10^3/uL (1.00-3.00) 07/13/18 20:35 Absolute Monocytes 1.24 10^3/uL (0.30-0.80) H 07/13/18 20:35 Absolute Eosinophils 0.00 10^3/uL (0.03-0.40) L 07/13/18 20:35 Absolute Basophils 0.00 10^3/uL (0.02-0.10) L 07/13/18 20:35 Absolute Metamyelocyte 0.31 10^3/mL (0.00-0.00) H 07/13/18 20:35 Absolute Myelocytes 0.00 10^3/mL (0.00-0.00) 07/13/18 20:35 Absolute Promyelocytes 0.00 10^3/uL (0.00-0.00) 07/13/18 20:35 Absolute Plasma Cells 0.00 10^3/uL (0.00-0.00) 07/13/18 20:35 Nucleated RBCs 0 /100 WBC (0-0) 07/13/18 20:35 Absolute Blast Cells 0.00 10^3/uL (0.00-0.00) 07/13/18 20:35 Plasma Cells % 0.0 % 07/13/18 20:35 Platelet Estimate ADEQUATE (ADEQ) 07/13/18 20:35 PT 15.4 SEC (12.0-15.0) H 07/13/18 20:35 INR 1.20 (0.83-1.16) H 07/13/18 20:35 APTT 25.6 SEC (23.0-38.0) 07/13/18 20:35 VBG Lactic Acid 1.0 mmol/L (0.7-2.1) 07/13/18 21:55 Sodium 130 mEq/L (135-145) L 07/13/18 20:35 Potassium 3.8 mEq/L (3.5-5.2) 07/13/18 20:35 Chloride 97 mEq/L (97-110) 07/13/18 20:35 Carbon Dioxide 24 mEq/l (22-31) 07/13/18 20:35 Anion Gap 9 mEq/L (6-14) 07/13/18 20:35 BUN 19 mg/dL (7-23) 07/13/18 20:35 Creatinine 0.8 mg/dL (0.6-1.0) 07/13/18 20:35 Estimated GFR > 60 07/13/18 20:35 Glucose 101 mg/dL (70-100) H 07/13/18 20:35 Calcium 7.8 mg/dL (8.5-10.4) L 07/13/18 20:35 Total Bilirubin 0.6 mg/dL (0.1-1.4) 07/13/18 20:35 Conjugated Bilirubin 0.3 mg/dL (0.0-0.5) 07/13/18 20:35 Unconjugated Bilirubin 0.3 mg/dL (0.0-1.1) 07/13/18 20:35 AST 14 IU/L (14-46) 07/13/18 20:35 ALT 22 IU/L (9-52) 07/13/18 20:35 Alkaline Phosphatase 46 IU/L (38-126) 07/13/18 20:35 Total Protein 5.3 g/dL (6.3-8.2) L 07/13/18 20:35 Albumin 2.5 g/dL (3.5-5.0) L 07/13/18 20:35 Lipase 21 IU/L (23-300) L 07/13/18 20:35 Imaging Review: Imaging Impressions Abdomen CT 07/13/18 22:27 Impression: Extensive colitis involving the distal transverse, descending, sigmoid colon, with fluid-filled distention of the lumen. Fecal retention within the proximal right colon, with moderate distention. No intraperitoneal air or fluid. Results called to Dr. An at 11:10 PM. Assessment & Plan Assessment: 53 yo F w/ UC presents w/ ongoing flare. Plan: 1. UC with acute flare - Acute flare persists despite ongoing prednisone therapy and recent initiation of Humira therapy. She was admitted here from 07/03- 07/07 for management of the same. CT (personally reviewed/interpreted) obtained this admission demonstrates extensive colitis involving the distal transverse, descending, sigmoid colon, with fluid-filled distention of the lumen. - Methylprednisolone 125 mg IV x1 now - S/p 2 L IVF, will continue maintenance overnight - GI consult in the morning 2. ABLA - Hgb 11.6, which is stable from last discharge. However, I suspect this to trend downwards with continued hematochezia and hydration. She is hemodynamically stable. - Monitor CBC - Transfuse for Hgb<7 3. Subacute Hyponatremia - Serum Na 130, down from 133 on 07/03 at time of last discharge. This is likely related to ongoing dehydration related to active UC. - S/p 2 L IVF, will continue maintenance overnight - Will check [place], Tere - Monitor BMP Diet - Clears, mIVF Code - Full Ppx - SCDs Dispo - Admit under observation status
[2018-07-14] MEDS: NS 1,000 ML IV SCH ×2 (00:43→20:06)
[2018-07-14] MEDS: ONDANSETRON DISINTEGRATING 4 MG TAB PO PRN ×2 (01:11→21:49)
[2018-07-14 04:40] LABS: PLATELET COUNT 244 10^3/uL (150-400)
[2018-07-14] MEDS: oxyCODONE IR 5 MG TAB PO PRN (04:55)
--- NOTE | 2018-07-14 09:28 | HOSPPROG ---
Hospitalist Progress Note Assessment/Plan: 53 yo F w refractory UC flare UC: hospitalized here 07/03-07/07 received humira 07/09 was on po pred 1. check gi path panel 2. solumedrol 40 q 8 3. gi to see ABLA: follow daily hg 9.2 noted hyponatremia: mild follow proph: scd's pain: oxycodone Subjective: ct images reviewed/interpreted by me. case d/w dr scanlon Objective: Vital Signs Temp Pulse Resp BP Pulse Ox 37.2 C 93 18 101/52 L 90 L 07/14/18 07:51 07/14/18 07:51 07/14/18 07:51 07/14/18 07:51 07/14/18 07:51 Laboratory Results 07/14/18 03:50 07/14/18 03:50 07/13/18 07/14/18 07/15/18 05:59 05:59 05:59 Intake Total 2631 Balance 2631 PT 15.4 SEC (12.0-15.0) H 07/13/18 20:35 INR 1.20 (0.83-1.16) H 07/13/18 20:35 - Physical Exam Constitutional: no apparent distress, appears nourished Eyes: PERRL, anicteric sclera Ears, Nose, Mouth, Throat: moist mucous membranes, hearing normal Cardiovascular: regular rate and rhythym, no murmur, rub, or gallop Respiratory: no respiratory distress, no rales or rhonchi Gastrointestinal: tenderness, distension, No normoactive bowel sounds, No guarding, No rebound Genitourinary: no bladder fullness, No zuniga in urethra Skin: warm, normal color Musculoskeletal: full muscle strength, no muscle tenderness Neurologic: AAOx3 Psychiatric: interacting appropriately ICD10 Worksheet Patient Problems: Problems Problem Status Onset Ulcerative colitis, acute Acute Failure of outpatient treatment Acute
[2018-07-14] MEDS: ONDANSETRON 4 MG/2 ML VIAL IVP PRN ×2 (09:49→14:35)
[2018-07-14] MEDS: methylPREDNISolone SOD SUCC 40 MG/ML VIAL IVP SCH ×3 (09:49→22:00)
--- NOTE | 2018-07-14 15:05 | GCON ---
DATE OF CONSULTATION: 07/14/2018 REFERRING PHYSICIAN: Jimy Templeton MD CHIEF COMPLAINT: Abdominal pain. HPI: Patient is a pleasant 53-year-old with a long history of inman ulcerative colitis who was admitte d to the hospital last week with UC flare at that time, having significant diarrhea and with blood in her stools and abdominal pain, was treated with Solu-Medrol, and then discharged home on June h on prednisone 40 mg daily. She received her 1st loading dose of Humira at home on July 09, bu t she states she never felt better. She never felt like she had improved even before discharge and n ow her symptoms are even worsened. She is having diarrhea to the point of incontinence and feels a f eeling of a lump in her anal opening. She is seeing mostly blood with her bowel movements. She is h aving increasing abdominal pain and increasing abdominal distention. She believes this all started a round [place] and was treated with outpatient prednisone and balsalazide. Last colonoscopy was Sep. ALLERGIES: Include penicillin, sulfa, lactose and gluten. MEDICATIONS AT HOME: Just recently started loading dose of Humira on July 09, 160 mg subcu. Jose lobo is on iron sulfate and prednisone 40 mg daily. PAST MEDICAL HISTORY: Ulcerative colitis. FAMILY HISTORY: Ulcerative colitis in a cousin and grandmother. SOCIAL HISTORY: She has never smoked. REVIEW OF SYSTEMS: I performed a complete review of systems. It was negative except for the pertine nt positives, negatives noted above. PHYSICAL EXAM: VITAL SIGNS: Afebrile at 36.8, BP 106/58, pulse 89. CONSTITUTIONAL: Alert, oriente d. EYES: No scleral icterus. HENT: No oral lesions. CARDIOVASCULAR: Regular rhythm. CHEST: Julio ar to auscultation. ABDOMEN: Notably distended and tympanic, soft but is tender to light palpation. There is no rebound. NEUROLOGIC: Grossly nonfocal. SKIN: No lesions. RECTAL: There are externa l hemorrhoids without thrombosis. IMAGING DATA: CT scan of the abdomen shows extensive colitis from the rectum to the descending and d istal transverse. There is fluid-filled distention in the lumen. There is fecal retention in the pr oximal colon. The cecum is dilated to 6.5 cm. LABORATORY DATA: CBC today is a white count of 6.6, hematocrit is 27.9 with hemoglobin of 9.2. Plat elets are 244. Sodium is low at 128. BUN is 13. Creatinine is 0.6. Lipase 21. ASSESSMENT: Patient with ongoing severe ulcerative colitis flare despite prednisone. She has only r eceived 1 loading dose of Humira, so may still be early to determine if this will be effective. Of c oncern patient has a distended abdomen and slightly dilated cecum. She could be at risk for toxic me gacolon. However, she has no fever, white count or rebound at this time, and we will monitor closely . Also consider if there may be other contributing factors as to why she is not responding well to m edical therapy such as other infection including cytomegalovirus. However, her GI path panel so far is negative. The patient having some incontinence I think associated with external hemorrhoids. PLAN: 1. Agree with Solu-Medrol. 2. Will check KUB today and tomorrow to monitor for any dilation of her cecum. If she has increasin g abdominal pain, fever, or white count, would suggest surgical consultation. 3. If not significantly better in the next 24-48 hours, then would recommend flexible sigmoidoscopy with biopsy to rule out CMV. Will follow. /[id number]/MODL
--- NOTE | 2018-07-14 16:11 | ASMTCMCOM ---
CM Note CM Note Notes: 07/14/2018 Case Management Note Reviewed chart. Pt admitted for abdominal pain with a history of ulcerative colitis. Recent 07/07 d/c from [facility] was independent with follow up scheduled with [facility]. There are no therapy evals ordered at this time. There are no case management d/c needs identified d/t pt age, marital status, employment status and independence with ADL's prior to admission. Case Management d/c poc: independent with follow up as directed. Case Management available if needs change. Date Signed: 07/14/2018 04:11 PM Electronically Signed By:Iveth Matamoros RN
--- NOTE | 2018-07-14 17:04 | PDMN ---
Medical Necessity Medical necessity: Change to inpt as of 07/14/18 @ 16:33 per MD order and [facility] [place], Inflammatory Bowel Disease. 53 y/o w/hx ulcerative colitis and recent hosp admission of UC flare, presented w/increasing abd pain, abd distention, and bloody diarrhea, admitted w/ongoing severe ulcerative colitis despite outpt care for this. Upgraded to inpt for persistent abd pain, distention, and nausea , hyponatremic w/sodium 128, needs further workup. GI consult, IV Solu-Medrol, KUB today and tomorrow. IVF, IV abx's, IV Dilaudid, IV antiemetics. Anticiapte> 2MN for ongoing eval/management of above.
[2018-07-15] MEDS: PREPARATION H 51 GM CRTUBE PR PRN ×2 (01:00→09:42)
[2018-07-15] MEDS: NS 1,000 ML IV SCH ×2 (04:15→16:13)
[2018-07-15 05:44] LABS: PLATELET COUNT 251 10^3/uL (150-400)
[2018-07-15] MEDS: ONDANSETRON DISINTEGRATING 4 MG TAB PO PRN ×3 (06:39→22:24)
[2018-07-15] MEDS: methylPREDNISolone SOD SUCC 40 MG/ML VIAL IVP SCH ×3 (06:39→22:25)
--- NOTE | 2018-07-15 09:55 | SOAPPROG ---
SOAP Progress Note Assessment/Plan: Assessment: UC flare responding to steroids Infectious colitis on antibiotics Distended cecum but not critical but will monitor doubt toxic megacolon Plan: Add HC enema for bleeding and urgency Continue steroids and antibiotics Check mag and phos replace if needed Encourage ambulation Clear liq for now 07/15/18 09:52 Subjective: CC bloody diarrhea Pt with continued bleeding urgency, abd distended Objective: Vital Signs Temp Pulse Resp BP Pulse Ox 36.6 C 78 16 104/54 L 93 07/15/18 07:31 07/15/18 07:31 07/15/18 07:31 07/15/18 07:31 07/15/18 07:31 Laboratory Results 07/15/18 05:08 07/15/18 05:08 07/14/18 07/15/18 07/16/18 05:59 05:59 05:59 Intake Total 1300 985 Balance 1300 985 PT 15.4 SEC (12.0-15.0) H 07/13/18 20:35 INR 1.20 (0.83-1.16) H 07/13/18 20:35 Physical Exam - Physical Exam General Appearance: alert, no apparent distress Respiratory: lungs clear Cardiac/Chest: regular rate, rhythm Abdomen: soft, distended ICD10 Worksheet Patient Problems: Problems Problem Status Onset Ulcerative colitis, acute Acute Failure of outpatient treatment Acute
--- NOTE | 2018-07-15 10:32 | HOSPPROG ---
Hospitalist Progress Note Assessment/Plan: 53 yo F w refractory UC flare UC: hospitalized here 07/03-07/07 received humira 07/09 solumedrol 40 q 8 treat eteropathogenic e coli HC enema enteropathogenic e coli: ceftriaxone day 07/30 ABLA: follow daily hg 9.0 noted hyponatremia: mild follow proph: scd's pain: oxycodone dispo: inpt Subjective: case d/w dr scanlon. perhaps a bit better today. abd film ( interp by me) w 9.2 cm cecum, no free air Objective: Vital Signs Temp Pulse Resp BP Pulse Ox 36.6 C 78 16 104/54 L 93 07/15/18 07:31 07/15/18 07:31 07/15/18 07:31 07/15/18 07:31 07/15/18 07:31 Laboratory Results 07/15/18 05:08 07/15/18 05:08 07/14/18 07/15/18 07/16/18 05:59 05:59 05:59 Intake Total 1300 985 Balance 1300 985 PT 15.4 SEC (12.0-15.0) H 07/13/18 20:35 INR 1.20 (0.83-1.16) H 07/13/18 20:35 - Physical Exam Constitutional: no apparent distress, appears nourished Eyes: PERRL, anicteric sclera Ears, Nose, Mouth, Throat: moist mucous membranes, hearing normal Cardiovascular: regular rate and rhythym, no murmur, rub, or gallop, No tachycardia Respiratory: no respiratory distress, no rales or rhonchi Gastrointestinal: tenderness, distension, No guarding, No rebound Genitourinary: No zuniga in urethra Skin: warm, normal color Musculoskeletal: full muscle strength Neurologic: AAOx3 ICD10 Worksheet Patient Problems: Problems Problem Status Onset Ulcerative colitis, acute Acute Failure of outpatient treatment Acute
[2018-07-15] MEDS: HYDROCORTISONE 100 MG/60 ML ENEMA BOTTLE PR SCH ×2 (11:54→22:27)
[2018-07-15] MEDS ORDERED: SIMETHICONE 80 MG TAB CHEW PO PRN (21:46)
[2018-07-15] MEDS: ZOLPIDEM TARTRATE 5 MG TAB PO PRN (22:35)
[2018-07-16] MEDS: NS 1,000 ML IV SCH (01:15)
[2018-07-16] MEDS: PREPARATION H 51 GM CRTUBE PR PRN (02:56)
[2018-07-16] MEDS: methylPREDNISolone SOD SUCC 40 MG/ML VIAL IVP SCH ×2 (06:31→16:02)
[2018-07-16] MEDS: ONDANSETRON DISINTEGRATING 4 MG TAB PO PRN (06:31)
--- NOTE | 2018-07-16 09:25 | HOSPPROG ---
Hospitalist Progress Note Assessment/Plan: 53 yo F w refractory UC flare UC: hospitalized here 07/03-07/07 received humira 07/09 solumedrol 40 q 8 treat eteropathogenic e coli HC enema 07/16 abd exam concerning given distension and bowel sounds dilated cecum from yesterday noted repeat film now surgical eval enteropathogenic e coli: ceftriaxone day 3 ABLA: follow daily hg 9.0 noted give IV iron X 3 days hyponatremia: mild follow proph: scd's pain: oxycodone dispo: inpt Subjective: abdomen distended. less BM. frustrated. case d.w dr scanlon Objective: Vital Signs Temp Pulse Resp BP Pulse Ox 36.4 C 77 16 114/72 95 07/16/18 03:01 07/16/18 08:26 07/16/18 08:26 07/16/18 08:26 07/16/18 08:26 Laboratory Results 07/16/18 04:18 07/16/18 04:18 07/15/18 07/16/18 07/17/18 05:59 05:59 05:59 Intake Total 1300 4979 1100 Balance 1300 4979 1100 PT 15.4 SEC (12.0-15.0) H 07/13/18 20:35 INR 1.20 (0.83-1.16) H 07/13/18 20:35 - Physical Exam Constitutional: no apparent distress, appears nourished Eyes: PERRL, anicteric sclera Ears, Nose, Mouth, Throat: moist mucous membranes, hearing normal Cardiovascular: regular rate and rhythym, no murmur, rub, or gallop Respiratory: no respiratory distress, no rales or rhonchi Gastrointestinal: other (distended w nearly absent bowel sounds. no rbound or guard) Genitourinary: no bladder fullness, No zuniga in urethra Skin: warm, normal color Musculoskeletal: full muscle strength Neurologic: AAOx3 ICD10 Worksheet Patient Problems: Problems Problem Status Onset Ulcerative colitis, acute Acute Failure of outpatient treatment Acute
[2018-07-16] MEDS: SODIUM FERRIC GLUCONAT/SUCROSE 125 MG in NS 100 ML IV SCH (11:58)
--- NOTE | 2018-07-16 15:22 | SOAPPROG ---
SOAP Progress Note Assessment/Plan: Assessment: UC flare responding to steroids Infectious colitis on antibiotics Distended cecum but not critical but will monitor doubt toxic megacolon Plan: Add HC enema for bleeding and urgency Continue steroids and antibiotics Check mag and phos replace if needed Encourage ambulation Clear liq for now 07/15/18 09:52 07/16/18 15:18 UC flare worse today with increased abd distension Plan Agree with surgical consult Monitor for increasing distension if worse tomorrow by KUB then try unprepped endoscopic decompression Subjective: CC ab pain Passing some gas but increased distension Objective: Vital Signs Temp Pulse Resp BP Pulse Ox 36.6 C 71 16 105/96 H 95 07/16/18 11:19 07/16/18 11:19 07/16/18 11:19 07/16/18 11:19 07/16/18 11:19 Laboratory Results 07/16/18 04:18 07/16/18 04:18 07/15/18 07/16/18 07/17/18 05:59 05:59 05:59 Intake Total 1300 4979 1100 Balance 1300 4979 1100 PT 15.4 SEC (12.0-15.0) H 07/13/18 20:35 INR 1.20 (0.83-1.16) H 07/13/18 20:35 Physical Exam - Physical Exam General Appearance: no apparent distress Respiratory: lungs clear Cardiac/Chest: regular rate, rhythm Abdomen: distended ICD10 Worksheet Patient Problems: Problems Problem Status Onset Ulcerative colitis, acute Acute Failure of outpatient treatment Acute
--- NOTE | 2018-07-16 15:24 | GCON ---
Asked to see the patient by the medical supervisor and Internal Medicine service in regard to colitis . HISTORY OF PRESENT ILLNESS: This 53-year-old female has had a diagnosis of ulcerative colitis for 20 years. She has had several flare-ups and long periods of remission. Currently, she has been having trouble for about a month. She was in [place] on vacation when she was started on prednisone for a f lare up and is currently on between 40 and 50 mg of prednisone a day. She is having blood with every bowel movement, feels increasingly distended, and now is not having diarrhea, but has blood dripping from the rectum, not passing much flatus, and is hospitalized. She is afebrile. Normal white blood count. CT scan shows thickened colon and modestly dilated cecum. The KUB today shows an 11 cm cecu m up from 9 cm yesterday. PHYSICAL EXAM: GENERAL: Pleasant slender female, cooperative with the exam, not appearing in great distress. ABDOMEN: Somewhat distended, tympanitic, and mildly tender. There is no rebound. ASSESSMENT: Known ulcerative colitis with flare. She was recently started on Humira for the first t yobani, and, unlikely it would have had an effect in only 24 hours. I do not think the patient is at im minent risk of spontaneous colon perforation from distention and should her cecum continue to the dis tend, her abdominal exam get worse, gentle colonoscopy and decompression would be appropriate, unders tanding there is a finite risk of perforation during such a procedure. I discussed with the patient the concept of total colectomy for treatment of ulcerative colitis, as w ell as cancer prevention, but she is not excited about this and has not been planning on this approac h. RECOMMENDATIONS: Monitor her clinically for increasing abdominal pain. Reasonable to watch her over night. X-ray in the morning. Consideration of colonoscopy either tonight or in the morning, particu larly if the cecum is approaching 14 cm. In the unlikely event that she did have a perforation, an e mergent subtotal colectomy would be appropriate with end-ileostomy. This would not burn any bridges for later pouch construction. All the above was explained to the patient and was comfortable to cont inue conservative management. /[id number]/MODL
[2018-07-16] MEDS: HYDROCORTISONE 100 MG/60 ML ENEMA BOTTLE PR SCH (16:01)
[2018-07-16] MEDS: METHYLPREDNISOLONE SOD SUCC IVP SCH ×2 (17:07→22:24)
[2018-07-16] MEDS: D5W IVP SCH ×2 (17:07→22:24)
[2018-07-16] MEDS: ZOLPIDEM TARTRATE 5 MG TAB PO PRN (22:24)
[2018-07-17] MEDS: METHYLPREDNISOLONE SOD SUCC IVP SCH ×3 (06:52→22:06)
[2018-07-17] MEDS: D5W IVP SCH ×3 (06:52→22:06)
--- NOTE | 2018-07-17 08:43 | HOSPPROG ---
Hospitalist Progress Note Assessment/Plan: 53 yo F w refractory UC flare UC: hospitalized here 07/03-07/07 received humira 07/09 solumedrol 40 q 8 treat eteropathogenic e coli HC enema 07/16 abd exam concerning given distension and bowel sounds dilated cecum from yesterday noted repeat film now surgical eval 07/17 perhaps a bit better laCTATE NORMAL no acidosis, not tachy await abd film d/w dr scanlon enteropathogenic e coli: ceftriaxone day 09/27 ABLA: follow daily hg 9.0 noted give IV iron X 3 days 07/17- stable hyponatremia: mild follow proph: scd's pain: oxycodone dispo: inpt Subjective: some gas and blood overnight. no fever Objective: Vital Signs Temp Pulse Resp BP Pulse Ox 36.6 C 74 16 108/68 93 07/17/18 08:04 07/17/18 08:04 07/17/18 08:04 07/17/18 08:04 07/17/18 08:04 Laboratory Results 07/17/18 04:30 07/17/18 04:30 07/16/18 07/17/18 07/18/18 05:59 05:59 05:59 Intake Total 4979 3900 Balance 4979 3900 PT 15.4 SEC (12.0-15.0) H 07/13/18 20:35 INR 1.20 (0.83-1.16) H 07/13/18 20:35 - Physical Exam Constitutional: no apparent distress, appears nourished Eyes: PERRL, anicteric sclera Ears, Nose, Mouth, Throat: moist mucous membranes, hearing normal Cardiovascular: regular rate and rhythym, no murmur, rub, or gallop, No tachycardia Respiratory: no respiratory distress, no rales or rhonchi Gastrointestinal: other (nearly absent bowel sounds. distended. no rebound), No normoactive bowel sounds Genitourinary: no bladder fullness, No zuniga in urethra Skin: warm, normal color Musculoskeletal: full muscle strength Neurologic: AAOx3 ICD10 Worksheet Patient Problems: Problems Problem Status Onset Ulcerative colitis, acute Acute Failure of outpatient treatment Acute
[2018-07-17] MEDS: SODIUM FERRIC GLUCONAT/SUCROSE 125 MG in NS 100 ML IV SCH (11:12)
--- NOTE | 2018-07-17 11:16 | SOAPPROG ---
SOAP Progress Note Assessment/Plan: Assessment: UC flare responding to steroids Infectious colitis on antibiotics Distended cecum but not critical but will monitor doubt toxic megacolon Plan: Add HC enema for bleeding and urgency Continue steroids and antibiotics Check mag and phos replace if needed Encourage ambulation Clear liq for now 07/15/18 09:52 07/16/18 15:18 UC flare worse today with increased abd distension Plan Agree with surgical consult Monitor for increasing distension if worse tomorrow by KUB then try unprepped endoscopic decompression 07/17/18 11:13 UC flare better today with less colonic distension passing gas OK for clear liquids today if dose well then full liquids tomorrow Subjective: UC Pt with LUQ pain with passing gas but overall less distended Objective: Vital Signs Temp Pulse Resp BP Pulse Ox 36.6 C 74 16 108/68 93 07/17/18 08:04 07/17/18 08:04 07/17/18 08:04 07/17/18 08:04 07/17/18 08:04 Laboratory Results 07/17/18 04:30 07/17/18 04:30 07/16/18 07/17/18 07/18/18 05:59 05:59 05:59 Intake Total 4979 3900 Balance 4979 3900 PT 15.4 SEC (12.0-15.0) H 07/13/18 20:35 INR 1.20 (0.83-1.16) H 07/13/18 20:35 Physical Exam - Physical Exam General Appearance: no apparent distress Respiratory: normal breath sounds Cardiac/Chest: regular rate, rhythm Abdomen: soft, distended ICD10 Worksheet Patient Problems: Problems Problem Status Onset Ulcerative colitis, acute Acute Failure of outpatient treatment Acute
--- NOTE | 2018-07-17 14:15 | ASMTCMCOM ---
CM Note CM Note Notes: Patient plan of care reviewed in am rounds. Per hospital medicine, abdominal films improved No current needs identified. Up independently in room. CM available should needs arise. Plan: Likely to dc to home independently when medically cleared for discharge. Date Signed: 07/17/2018 02:15 PM Electronically Signed By:Leah Thompson RN
--- NOTE | 2018-07-17 15:36 | SOAPPROG ---
[facility] Progress Note Assessment/Plan: Assessment:UC with megacolon/acute flare appears to be improving clinically with Humira/steroids Plan:if clear liquids tolerated would advance to full liquids/include nutritional supplements with clear liquids (Ensure clear) Discussed technical aspects of colectomy for patients with UC and recommended colorectal surgeon perform this if needed for endo-rectal mucosectomy + ileo anal pouch creation. Colon perforation or toxic megacolon could require emergent resection with end ileostomy/Real's pouch 07/17/18 15:32 Subjective: Paula reports passing some flatus/moderate amount of blood Objective: Vital Signs Temp Pulse Resp BP Pulse Ox 36.4 C 71 16 103/67 95 07/17/18 12:59 07/17/18 12:59 07/17/18 12:59 07/17/18 12:59 07/17/18 12:59 Laboratory Results 07/17/18 04:30 07/17/18 04:30 07/16/18 07/17/18 07/18/18 05:59 05:59 05:59 Intake Total 4979 3900 Balance 4979 3900 PT 15.4 SEC (12.0-15.0) H 07/13/18 20:35 INR 1.20 (0.83-1.16) H 07/13/18 20:35 - Pending Discharge Pending Discharge Within 24 Hours: No Physical Exam - Physical Exam General Appearance: alert, mild distress Cardiac/Chest: regular rate, rhythm Abdomen: soft, distended, other (hypoactive bowel sounds, RUQ tenderness with guarding) Pelvic Exam: deferred Rectal: deferred Neuro/Psych: normal mood/affect, oriented x 3 ICD10 Worksheet Patient Problems: Problems Problem Status Onset Ulcerative colitis, acute Acute Failure of outpatient treatment Acute
[2018-07-18] MEDS: METHYLPREDNISOLONE SOD SUCC IVP SCH ×3 (05:25→22:31)
[2018-07-18] MEDS: D5W IVP SCH ×3 (05:25→22:31)
--- NOTE | 2018-07-18 09:04 | HOSPPROG ---
Hospitalist Progress Note Assessment/Plan: 53 yo F w refractory UC flare UC: hospitalized here 07/03-07/07 received humira 07/09 solumedrol 40 q 8 treat eteropathogenic e coli HC enema 07/16 abd exam concerning given distension and bowel sounds dilated cecum from yesterday noted repeat film now surgical eval 07/17 perhaps a bit better laCTATE NORMAL no acidosis, not tachy await abd film d/w dr scanlon 07/18 slight improvement repeat film continue current care edema: 2/2 hypoalbuminemia JOY's enteropathogenic e coli: ceftriaxone day 10/27 ABLA: follow daily hg 9.0 noted give IV iron X 3 days 07/17- stable hyponatremia: mild follow proph: scd's pain: oxycodone dispo: inpt Subjective: case d/w dr scanlon. abdomen less distended, passing gas Objective: Vital Signs Temp Pulse Resp BP Pulse Ox 36.5 C 85 16 108/73 92 07/18/18 07:52 07/18/18 07:52 07/18/18 07:52 07/18/18 07:52 07/18/18 07:52 Laboratory Results 07/17/18 04:30 07/18/18 04:10 07/17/18 07/18/18 07/19/18 05:59 05:59 05:59 Intake Total 3900 2650 Balance 3900 2650 PT 15.4 SEC (12.0-15.0) H 07/13/18 20:35 INR 1.20 (0.83-1.16) H 07/13/18 20:35 - Physical Exam Constitutional: no apparent distress, appears nourished Eyes: PERRL, anicteric sclera Ears, Nose, Mouth, Throat: moist mucous membranes, hearing normal Cardiovascular: regular rate and rhythym, no murmur, rub, or gallop, No tachycardia Respiratory: no respiratory distress, no rales or rhonchi Gastrointestinal: other (less distended, hypoactive bowel sounds), No guarding, No rebound Genitourinary: No zuniga in urethra Skin: warm, normal color Musculoskeletal: full muscle strength Neurologic: AAOx3 Psychiatric: interacting appropriately ICD10 Worksheet Patient Problems: Problems Problem Status Onset Ulcerative colitis, acute Acute Failure of outpatient treatment Acute
--- NOTE | 2018-07-18 10:55 | SOAPPROG ---
SOAP Progress Note Assessment/Plan: Assessment: UC flare responding to steroids Infectious colitis on antibiotics Distended cecum but not critical but will monitor doubt toxic megacolon Plan: Add HC enema for bleeding and urgency Continue steroids and antibiotics Check mag and phos replace if needed Encourage ambulation Clear liq for now 07/15/18 09:52 07/16/18 15:18 UC flare worse today with increased abd distension Plan Agree with surgical consult Monitor for increasing distension if worse tomorrow by KUB then try unprepped endoscopic decompression 07/17/18 11:13 UC flare better today with less colonic distension passing gas OK for clear liquids today if dose well then full liquids tomorrow 07/18/18 10:53 UC flare signs of clinical improvement today with less disteded abd and she is passing gas. Possible pseudoobstruction that is now improving. Plan Continue current treatment Pt to ambulate and limit narcs Subjective: CC UC fare Passing gas feeling less distended Objective: Vital Signs Temp Pulse Resp BP Pulse Ox 36.5 C 85 16 108/73 92 07/18/18 07:52 07/18/18 07:52 07/18/18 07:52 07/18/18 07:52 07/18/18 07:52 Laboratory Results 07/17/18 04:30 07/18/18 04:10 07/17/18 07/18/18 07/19/18 05:59 05:59 05:59 Intake Total 3900 2650 Balance 3900 2650 PT 15.4 SEC (12.0-15.0) H 07/13/18 20:35 INR 1.20 (0.83-1.16) H 07/13/18 20:35 Physical Exam - Physical Exam General Appearance: no apparent distress Respiratory: lungs clear Cardiac/Chest: regular rate, rhythm Abdomen: non-tender (less tense abd ) ICD10 Worksheet Patient Problems: Problems Problem Status Onset Ulcerative colitis, acute Acute Failure of outpatient treatment Acute
[2018-07-18] MEDS: SODIUM FERRIC GLUCONAT/SUCROSE 125 MG in NS 100 ML IV SCH (12:02)
--- NOTE | 2018-07-18 14:53 | ASMTCMCOM ---
CM Note CM Note Notes: Patient seen in multidisciplinary rounds. Treated for ulcerative colitis. On steroid treatment. Ambulating. Independent with ADL's. CM available should needs arise. Plan: Home independent when medically cleared for discharge to home. Date Signed: 07/18/2018 02:52 PM Electronically Signed By:Leah Thompson RN
[2018-07-19] MEDS: D5W IVP SCH ×3 (06:34→21:29)
[2018-07-19] MEDS: METHYLPREDNISOLONE SOD SUCC IVP SCH ×3 (06:34→21:29)
--- NOTE | 2018-07-19 09:26 | HOSPPROG ---
Hospitalist Progress Note Assessment/Plan: DIAGNOSES: * Acute ulcerative colitis flare * Acute enteropathogenic E coli colitis * Acute blood loss anemia * Edema secondary to IV fluids, anemia, hypoalbuminemia * Hyponatremia mild but persists at this time * Moderate protein calorie malnutrition with decreased muscle mass and subcu fat , albumin 1.9 still decreasing PLANS: * Continue current steroid dose * I think she could progress to full liquids diet today but will review with Gastroenterology when they arrive today * Increase activity as able * Will need follow-up of her anemia * Will add multiple vitamins when she is able to tolerate them Seen by me on hospitalist rounds today as well as multidisciplinary rounds SUBJECTIVE: Start to feel somewhat better though still with cramping and bloating, not very hungry Is tolerating clear liquids well Did have some flatus today OBJECTIVE Vitals reviewed: 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, 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: Exam: alert oriented, appears tired, has moderately diminished subcu fat and lean body mass skin warm dry color ok resps not labored lungs clear BSs heart regular abd soft nondistended nontender, bowel sounds present limbs warm, no edema iv site ok Lab data: Hemoglobin stable 8.8, remains quite anemic Removing yesterday's chemistries albumin is at 1.9 down from 2.5 several days earlier Objective: Vital Signs Temp Pulse Resp BP Pulse Ox 36.5 C 67 14 116/71 96 07/19/18 07:16 07/19/18 07:16 07/19/18 07:16 07/19/18 07:16 07/19/18 07:16 Laboratory Results 07/19/18 04:40 07/18/18 04:10 07/18/18 07/19/18 07/20/18 06:59 06:59 06:59 Intake Total 2650 3950 Balance 2650 3950 PT 15.4 SEC (12.0-15.0) H 07/13/18 20:35 INR 1.20 (0.83-1.16) H 07/13/18 20:35 ICD10 Worksheet Patient Problems: Problems Problem Status Onset Ulcerative colitis, acute Acute Failure of outpatient treatment Acute
--- NOTE | 2018-07-19 12:01 | SOAPPROG ---
SOAP Progress Note Assessment/Plan: Assessment: UC flare responding to steroids Infectious colitis on antibiotics Distended cecum but not critical but will monitor doubt toxic megacolon Plan: Add HC enema for bleeding and urgency Continue steroids and antibiotics Check mag and phos replace if needed Encourage ambulation Clear liq for now 07/15/18 09:52 07/16/18 15:18 UC flare worse today with increased abd distension Plan Agree with surgical consult Monitor for increasing distension if worse tomorrow by KUB then try unprepped endoscopic decompression 07/17/18 11:13 UC flare better today with less colonic distension passing gas OK for clear liquids today if dose well then full liquids tomorrow 07/18/18 10:53 UC flare signs of clinical improvement today with less distended abd and she is passing gas. Possible pseudoobstruction that is now improving. Plan Continue current treatment Pt to ambulate and limit narcs 07/19/18 11:58 UC flare overall much improved over last 2 days still assing blood Plan OK to slowly advance diet ? give next loading dose of Humira sooner, will discuss with Dr. Colon who takes over service tonight Subjective: CC UC Feels much less distended Objective: Vital Signs Temp Pulse Resp BP Pulse Ox 36.5 C 67 14 116/71 96 07/19/18 07:16 07/19/18 07:16 07/19/18 07:16 07/19/18 07:16 07/19/18 07:16 Laboratory Results 07/19/18 04:40 07/18/18 04:10 07/18/18 07/19/18 07/20/18 05:59 05:59 05:59 Intake Total 2650 3950 Balance 2650 3950 PT 15.4 SEC (12.0-15.0) H 07/13/18 20:35 INR 1.20 (0.83-1.16) H 07/13/18 20:35 Physical Exam - Physical Exam General Appearance: no apparent distress Respiratory: lungs clear Cardiac/Chest: regular rate, rhythm Abdomen: non-tender, distended (Still distedned but better ) ICD10 Worksheet Patient Problems: Problems Problem Status Onset Ulcerative colitis, acute Acute Failure of outpatient treatment Acute
--- NOTE | 2018-07-19 13:33 | ASMTCMCOM ---
CM Note CM Note Notes: Pt discussed during rounds. She is beginning to improve; she may progress to a full liquids diet tomorrow and is being encouraged to be active as able. She is presently taking Methylprednisolone IV. D/C expected in 1-2 days. She will likely have no CM needs; CM will follow for changes. D/C Plan: Anticipate independent D/C Plan: Anticipate independent. Date Signed: 07/19/2018 01:33 PM Electronically Signed By:Carolyn Alonso
[2018-07-20] MEDS: D5W IVP SCH ×3 (05:00→22:16)
[2018-07-20] MEDS: METHYLPREDNISOLONE SOD SUCC IVP SCH ×3 (05:00→22:16)
--- NOTE | 2018-07-20 11:12 | HOSPPROG ---
Hospitalist Progress Note Assessment/Plan: DIAGNOSES: * Acute ulcerative colitis flare * Acute enteropathogenic E coli colitis * Acute blood loss anemia * Edema secondary to IV fluids, anemia, hypoalbuminemia * Hyponatremia mild but persists at this time * Moderate protein calorie malnutrition with decreased muscle mass and subcu fat , albumin 1.9 still decreasing Overall so far poor response to steroid with ongoing symptoms. Would be good to get her on biologic soon if possible. Doubt that further endoscopies would be helpful at this time but will review with GI PLANS: * Continue current steroid dose * ? If we can progress to some oral solid starches in her diet at this time * Continue ambulating * Ongoing follow-up of her anemia * Will add multiple vitamins when she is able to tolerate them Seen by me on hospitalist rounds today as well as multidisciplinary rounds I will review with Dr. 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: Exam: alert oriented, appears tired, has moderately diminished subcu fat and lean body mass skin warm dry color ok resps not labored lungs clear BSs heart regular abd soft nondistended nontender, bowel sounds present limbs warm, no edema iv site ok Lab data: Hemoglobin stable 9.1, remains quite anemic Objective: Vital Signs Temp Pulse Resp BP Pulse Ox 36.7 C 92 16 112/60 93 07/20/18 07:43 07/20/18 07:43 07/20/18 07:43 07/20/18 07:43 07/20/18 07:43 Laboratory Results 07/20/18 04:05 07/18/18 04:10 07/19/18 07/20/18 07/21/18 06:59 06:59 06:59 Intake Total 3950 1000 Balance 3950 1000 PT 15.4 SEC (12.0-15.0) H 07/13/18 20:35 INR 1.20 (0.83-1.16) H 07/13/18 20:35 - Time Spent With Patient Time Spent with Patient: greater than 35 minutes Time Spent with Patient: Greater than 35 minutes spent on this patients care, greater than 50% of time spent counseling, educating, and coordinating care regarding the above mentioned plan. ICD10 Worksheet Patient Problems: Problems Problem Status Onset Ulcerative colitis, acute Acute Failure of outpatient treatment Acute
--- NOTE | 2018-07-20 13:43 | SOAPPROG ---
SOAP Progress Note Assessment/Plan: Assessment: 1 MAXIMINO with sever flare. Slow improvement. 2. BRB per rectum and diarrhea with slow improvement. 3. Abdominal distension; improved. Plan: 1. Continue IV solumedrol at present dosage. 2. Would wait to give second dose of Humira until some time next week. 3. KUB in am to assessment right colon distension. 4. HEIDI. Mian Ortiz MD [phone] 07/20/18 13:45 Subjective: CC; Flare of MAXIMINO. Interval HPI: Patient feeling better today with improvement in abdominal distension and discomfort. 10 bloody lo volume BM's in last 24 hours which she feels is an improvement. Objective: Vital Signs Temp Pulse Resp BP Pulse Ox 36.7 C 92 16 112/60 93 07/20/18 07:43 07/20/18 07:43 07/20/18 07:43 07/20/18 07:43 07/20/18 07:43 Laboratory Results 07/20/18 04:05 07/18/18 04:10 07/19/18 07/20/18 07/21/18 05:59 05:59 05:59 Intake Total 3950 1000 Balance 3950 1000 PT 15.4 SEC (12.0-15.0) H 07/13/18 20:35 INR 1.20 (0.83-1.16) H 07/13/18 20:35 Physical Exam - Physical Exam General Appearance: alert, no apparent distress Respiratory: lungs clear, normal breath sounds Cardiac/Chest: regular rate, rhythm Abdomen: normal bowel sounds, non-tender, distended Skin: normal color, warm/dry Neuro/Psych: alert, normal mood/affect, oriented x 3 ICD10 Worksheet Patient Problems: Problems Problem Status Onset Ulcerative colitis, acute Acute Failure of outpatient treatment Acute
[2018-07-20] MEDS: [UNRECOGNIZED DRUG - OTHER] PO PRN (20:19)
[2018-07-21] MEDS: D5W IVP SCH ×3 (06:15→21:48)
[2018-07-21] MEDS: METHYLPREDNISOLONE SOD SUCC IVP SCH ×3 (06:15→21:48)
--- NOTE | 2018-07-21 09:43 | ASMTCMCOM ---
CM Note CM Note Notes: Chart reviewed for dc plan of care. 53 year old female with ulcerative colitis flare. Patient in independent with ADLS and will likely have no needs upon discharge. Plan: Dc to home independent when medically cleared, Date Signed: 07/21/2018 09:43 AM Electronically Signed By:Leah Thompson RN
--- NOTE | 2018-07-21 11:03 | SOAPPROG ---
SOAP Progress Note Assessment/Plan: Assessment: 1 MAXIMINO with severe flare. Starting to improvement with less BM's and more formed stool. 2. Abdominal distension; improved. 3. Malnutrition. 4. Anemia secondary to MAXIMINO flare. Plan: 1. Continue IV solumedrol at present dosage. 2. Would wait to give second dose of Humira until some time next week. 3. No KUB today. 4. HEIDI. Mian Ortiz MD [phone] 07/21/18 11:03 Subjective: CC: MAXIMINO. Interval HPI: Patient feeling better today with less BM's which are more formed. Abdominal distension improved. Objective: Vital Signs Temp Pulse Resp BP Pulse Ox 36.8 C 75 18 107/58 L 92 07/21/18 08:12 07/21/18 08:12 07/21/18 08:12 07/21/18 08:12 07/21/18 08:12 Laboratory Results 07/20/18 04:05 07/18/18 04:10 07/20/18 07/21/18 07/22/18 05:59 05:59 05:59 Intake Total 1000 800 Balance 1000 800 PT 15.4 SEC (12.0-15.0) H 07/13/18 20:35 INR 1.20 (0.83-1.16) H 07/13/18 20:35 Physical Exam - Physical Exam General Appearance: alert, no apparent distress Respiratory: lungs clear, normal breath sounds Cardiac/Chest: regular rate, rhythm Abdomen: non-tender, soft, distended (but mproved.) Skin: normal color, warm/dry Neuro/Psych: alert, normal mood/affect, oriented x 3 ICD10 Worksheet Patient Problems: Problems Problem Status Onset Ulcerative colitis, acute Acute Failure of outpatient treatment Acute
--- NOTE | 2018-07-21 12:41 | HOSPPROG ---
Hospitalist Progress Note Assessment/Plan: DIAGNOSES: * Acute ulcerative colitis flare * Acute enteropathogenic E coli colitis * Acute blood loss anemia * Edema secondary to IV fluids, anemia, hypoalbuminemia * Hyponatremia mild but persists at this time * Moderate protein calorie malnutrition with decreased muscle mass and subcu fat , albumin 1.9 still decreasing PLANS: * Continue current steroid dose * diet as tolerated * Continue ambulating * Will add multiple vitamins when she is able to tolerate them * plan starting humira next week per GI, her dose is previously scheduled for July 24 * Likely discharge home tomorrow if all continues to go well Seen by me on hospitalist rounds today as well as multidisciplinary rounds I have reviewed in detail with Dr. 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0) H 07/13/18 20:35 INR 1.20 (0.83-1.16) H 07/13/18 20:35 ICD10 Worksheet Patient Problems: Problems Problem Status Onset Ulcerative colitis, acute Acute Failure of outpatient treatment Acute
[2018-07-21] MEDS: [UNRECOGNIZED DRUG - OTHER] PO PRN (21:49)
[2018-07-22] MEDS: D5W IVP SCH ×3 (05:57→22:26)
[2018-07-22] MEDS: METHYLPREDNISOLONE SOD SUCC IVP SCH ×3 (05:57→22:26)
--- NOTE | 2018-07-22 08:39 | SOAPPROG ---
SOAP Progress Note Assessment/Plan: Assessment: 1 MAXIMINO with severe flare. Continued improvement with more formed BM's albeit still with blood with this am BM. 2. Abdominal distension; improved. 3. Malnutrition, taking po diet better. 4. Anemia secondary to MAXIMINO flare; stable. Plan: 1. Continue IV solumedrol at present dosage today, hopefully can switch to Prednisone tomorrow. 2. Would wait to give second dose of Humira until some time next week(07/24). I will discuss with Dr Colon who will be taking over patient care as outpatient. Mian Ortiz MD [phone] 07/22/18 08:36 Subjective: CC: MAXIMINO. Interval HPI: Patient feeling better today with continued improvement in abdominal distension and more formed BM's. Did have bloody BM x 1 this am. Objective: Vital Signs Temp Pulse Resp BP Pulse Ox 36.6 C 70 15 107/68 93 07/22/18 07:50 07/22/18 07:50 07/22/18 07:50 07/22/18 07:50 07/22/18 07:50 Laboratory Results 07/22/18 04:34 07/22/18 04:34 07/21/18 07/22/18 07/23/18 05:59 05:59 05:59 Intake Total 800 1260 Balance 800 1260 PT 15.4 SEC (12.0-15.0) H 07/13/18 20:35 INR 1.20 (0.83-1.16) H 07/13/18 20:35 Physical Exam - Physical Exam General Appearance: alert, no apparent distress Respiratory: lungs clear, normal breath sounds Cardiac/Chest: regular rate, rhythm Abdomen: normal bowel sounds, non-tender, soft, distended (improved) Skin: normal color, warm/dry Neuro/Psych: alert, normal mood/affect, oriented x 3 ICD10 Worksheet Patient Problems: Problems Problem Status Onset Ulcerative colitis, acute Acute Failure of outpatient treatment Acute
--- NOTE | 2018-07-22 13:21 | HOSPPROG ---
Hospitalist Progress Note Assessment/Plan: DIAGNOSES: * Acute ulcerative colitis flare * Acute enteropathogenic E coli colitis * Acute blood loss anemia * Edema secondary to IV fluids, anemia, hypoalbuminemia * Hyponatremia mild but persists at this time * Moderate protein calorie malnutrition with decreased muscle mass and subcu fat , albumin 1.9 still decreasing PLANS: * Continue current steroid dose * diet as tolerated * Continue ambulating * plan starting humira next week per GI, her dose is previously scheduled for July 24 * Plan is to likely discharge tomorrow on oral prednisone, outpatient Humira the next day Seen by me on hospitalist rounds today as well as multidisciplinary rounds I have reviewed in detail with Dr. 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: Exam: alert oriented, more relaxed and comfortable appearing skin warm dry color ok resps not labored lungs clear BSs heart regular abd soft nondistended nontender, bowel sounds present limbs warm, no edema iv site ok Objective: Vital Signs Temp Pulse Resp BP Pulse Ox 36.6 C 70 15 107/68 93 07/22/18 07:50 07/22/18 07:50 07/22/18 07:50 07/22/18 07:50 07/22/18 07:50 Laboratory Results 07/22/18 04:34 07/22/18 04:34 07/21/18 07/22/18 07/23/18 06:59 06:59 06:59 Intake Total 800 1260 Balance 800 1260 PT 15.4 SEC (12.0-15.0) H 07/13/18 20:35 INR 1.20 (0.83-1.16) H 07/13/18 20:35 ICD10 Worksheet Patient Problems: Problems Problem Status Onset Ulcerative colitis, acute Acute Failure of outpatient treatment Acute
--- NOTE | 2018-07-22 13:51 | ASMTCMCOM ---
CM Note CM Note Notes: Patient plan of care reviewed in am rounds. 53 year old female with ulcerative colitis flair responding to treatment and is independent with ADL's. No needs identified. CM available should needs arise. Plan: To dc to home no needs when medically cleared for discharge. Date Signed: 07/22/2018 01:50 PM Electronically Signed By:Leah Thompson RN
[2018-07-22] MEDS: [UNRECOGNIZED DRUG - OTHER] PO PRN (18:50)
[2018-07-23] MEDS: D5W IVP SCH (06:30)
[2018-07-23] MEDS: METHYLPREDNISOLONE SOD SUCC IVP SCH (06:30)
--- NOTE | 2018-07-23 10:48 | SOAPPROG ---
SOAP Progress Note Assessment/Plan: Assessment: 1 MAXIMINO with severe flare. Continued improvement with more formed BM's albeit still with blood with this am BM. Only 2 BM yesterday and one so far today. 2. Abdominal distension; improved. 3. Malnutrition, taking po diet better. 4. Anemia secondary to MAXIMINO flare; stable. Plan: 1. Discontinue IV Solumedrol now, Prednisone 30 mg PO BID starting this afternoon. 2. Humira injection tomorrow, patient will bring in her own med. 3. Hopefully home tomorrow pm. Mian Ortiz MD [phone] 07/23/18 10:45 Subjective: CC: MAXIMINO with flare. Interval HPI: Patient fatigued today albeit diarrhea improved. Still having some blood per rectum once daily. Objective: Vital Signs Temp Pulse Resp BP Pulse Ox 36.6 C 85 18 99/75 L 95 07/23/18 06:31 07/23/18 06:31 07/23/18 06:31 07/23/18 06:31 07/23/18 06:31 Laboratory Results 07/22/18 04:34 07/22/18 04:34 07/22/18 07/23/18 07/24/18 05:59 05:59 05:59 Intake Total 1260 2000 800 Balance 1260 2000 800 PT 15.4 SEC (12.0-15.0) H 07/13/18 20:35 INR 1.20 (0.83-1.16) H 07/13/18 20:35 Physical Exam - Physical Exam General Appearance: alert, no apparent distress Respiratory: lungs clear, normal breath sounds Cardiac/Chest: normal peripheral pulses, regular rate, rhythm Abdomen: normal bowel sounds, non-tender Skin: normal color, warm/dry Neuro/Psych: alert, normal mood/affect, oriented x 3 ICD10 Worksheet Patient Problems: Problems Problem Status Onset Ulcerative colitis, acute Acute Failure of outpatient treatment Acute
--- NOTE | 2018-07-23 13:17 | HOSPPROG ---
Hospitalist Progress Note Assessment/Plan: DIAGNOSES: * Acute ulcerative colitis flare * Acute enteropathogenic E coli colitis status post 5 days Rocephin * Acute blood loss anemia * Edema secondary to IV fluids, anemia, hypoalbuminemia, improved * Hyponatremia mild stable * Mild hyperglycemia from steroids, should improve as dose goes down at this time * Moderate protein calorie malnutrition with decreased muscle mass and subcu fat , albumin 1.9 PLANS: * Changed from Solu-Medrol to oral prednisone today in order to monitor for any worsening of bleeding pain or other symptoms with the transition * Continue diet as tolerated * Will give her her Humira dose here tomorrow * If stable discharge after Humira dose tomorrow SUBJECTIVE: Very little pain Still with rectal bleeding today Eating well No fever symptoms OBJECTIVE Vitals reviewed: Stable without fever Information Systems Auditor, my review: Exam: alert oriented, more relaxed and comfortable appearing skin warm dry color ok resps not labored lungs clear BSs heart regular abd soft nondistended nontender, bowel sounds present limbs warm, mild ankle edema bilaterally iv site ok Objective: Vital Signs Temp Pulse Resp BP Pulse Ox 36.6 C 85 18 99/75 L 95 07/23/18 06:31 07/23/18 06:31 07/23/18 06:31 07/23/18 06:31 07/23/18 06:31 Laboratory Results 07/22/18 04:34 07/22/18 04:34 07/22/18 07/23/18 07/24/18 06:59 06:59 06:59 Intake Total 1260 2800 Balance 1260 2800 PT 15.4 SEC (12.0-15.0) H 07/13/18 20:35 INR 1.20 (0.83-1.16) H 07/13/18 20:35 ICD10 Worksheet Patient Problems: Problems Problem Status Onset Ulcerative colitis, acute Acute Failure of outpatient treatment Acute
[2018-07-23] MEDS: oxyCODONE IR 5 MG TAB PO PRN (18:30)
[2018-07-23] MEDS: predniSONE 20 MG TAB PO SCH (18:30)
[2018-07-23] MEDS ORDERED: HYDROmorphONE/DILAUDID 2 MG/ML INJ IVP PRN (20:30)
[2018-07-23] MEDS ORDERED: oxyCODONE IR 5 MG TAB PO PRN (23:04)
[2018-07-24] MEDS: predniSONE 20 MG TAB PO SCH ×2 (09:57→19:14)
[2018-07-24] MEDS: [UNRECOGNIZED DRUG - OTHER] PO PRN (09:57)
[2018-07-24] MEDS ORDERED: ADALIMUMAB 80 MG/0.8 ML SC ONE (10:15)
--- NOTE | 2018-07-24 11:42 | SOAPPROG ---
SOAP Progress Note Assessment/Plan: Assessment: 1 MAXIMINO with severe flare. Continued improvement with more formed BM's albeit still with blood with this am BM. Only 2 BM yesterday and one so far today. Patient feeling more fatigued today 2. Abdominal distension; improved. 3. Malnutrition, taking po diet better. 4. Anemia secondary to MAXIMINO flare; stable. Plan: 1. Prednisone 30 mg PO BID starting this afternoon. 2. Humira injection this am, patient will bring in her own med. 3. Hopefully home tomorrow. Mian Ortiz MD [phone] 07/24/18 11:42 Subjective: CC: Flare of MAXIMINO. Interval HPI: Patient continues to have some bloody BM's radha formed stool. C/ O fatigue and feeling warm today. Tolerating PO. Objective: Vital Signs Temp Pulse Resp BP Pulse Ox 37.4 C 99 18 106/60 94 07/24/18 08:00 07/24/18 08:00 07/24/18 08:00 07/24/18 08:00 07/24/18 08:00 Laboratory Results 07/22/18 04:34 07/22/18 04:34 07/23/18 07/24/18 07/25/18 05:59 05:59 05:59 Intake Total 2000 800 Balance 2000 800 PT 15.4 SEC (12.0-15.0) H 07/13/18 20:35 INR 1.20 (0.83-1.16) H 07/13/18 20:35 Physical Exam - Physical Exam General Appearance: alert, mild distress Respiratory: lungs clear, normal breath sounds Cardiac/Chest: regular rate, rhythm Abdomen: normal bowel sounds, non-tender Skin: normal color, warm/dry Neuro/Psych: alert, normal mood/affect, oriented x 3 ICD10 Worksheet Patient Problems: Problems Problem Status Onset Ulcerative colitis, acute Acute Failure of outpatient treatment Acute
[2018-07-24] MEDS: ACETAMINOPHEN 325 MG TAB PO PRN ×2 (12:31→20:30)
--- NOTE | 2018-07-24 16:05 | ASMTCMCOM ---
CM Note CM Note Notes: RN notified CM that Humira pen malfunctioned and no medication received. Call to [facility] to report incident. All details provided, lot number and expiration date, dosage, pertinent information about patient all relayed. Per patient she has an RN ambassador that will assist with patient and administration. Plan: Hopeful discharge independently tomorrow. Date Signed: 07/24/2018 04:04 PM Electronically Signed By:Leah Thompson RN
--- NOTE | 2018-07-24 17:42 | HOSPPROG ---
Hospitalist Progress Note Assessment/Plan: * Acute UC flare -change to PO prednisone -give dose Humira when available * Acute enteropathogenic E coli s/p 5 days IV rocephin * ABL anemia -stable * SIADH -fluid restrict * Elevated lactate - likely dehydration - resolved Subjective: Increased abdominal pain today. Tried to give Humira but device malfunctioned and the medication sprayed externally on skin Objective: Vital Signs Temp Pulse Resp BP Pulse Ox 37.4 C 99 18 106/60 94 07/24/18 08:00 07/24/18 08:00 07/24/18 08:00 07/24/18 08:00 07/24/18 08:00 Laboratory Results 07/22/18 04:34 07/22/18 04:34 07/23/18 07/24/18 07/25/18 05:59 05:59 05:59 Intake Total 1999 800 Balance 1999 800 PT 15.4 SEC (12.0-15.0) H 07/13/18 20:35 INR 1.20 (0.83-1.16) H 07/13/18 20:35 AXR viewed, my personal interpretation is - very dilated loops of colon CT abd - diffuse extensive colitis - Physical Exam Constitutional: no apparent distress, appears nourished, not in pain, other ( walking in halls, calling insurance trying to get another dose of Humira) Respiratory: no respiratory distress Gastrointestinal: distension Skin: no rashes or abrasions, no fluctuance, no induration Neurologic: AAOx3, sensation intact bilaterally Psychiatric: interacting appropriately, not anxious, not encephalopathic, thought process linear ICD10 Worksheet Patient Problems: Problems Problem Status Onset Ulcerative colitis, acute Acute Failure of outpatient treatment Acute
[2018-07-25 05:29] LABS: PLATELET COUNT 364 10^3/uL (150-400)
[2018-07-25 07:53] VITALS: BP 98/73
[2018-07-25] MEDS: predniSONE 20 MG TAB PO SCH (08:09)
--- NOTE | 2018-07-25 09:30 | ASDISCHSUM ---
Discharge Information Plan Status:Home with No Needs Medically Cleared to Leave: Discharge Date: CM D/C Disposition:Home, Routine, Self-Care ADT D/C Disposition:Home, Routine, Self-Care Projected Discharge Date: Transportation at D/C: Discharge Delay Reason: Follow-Up Date: Discharge Slot: Final Diagnosis: Placement Information Patient Contact Information Contact Name:VALENTIN Relationship: Address:[address] City:[place] Alternate Phone: State/Zip Code:[place] [address] Email: Financial Information Financial Class:HMO and PPO Plans Primary Plan Desc:REPLACED BY [facility] Primary Plan Number:[id number] Secondary Plan Desc: Secondary Plan Number: Assessment Information LACE LACE Length of stay for Answers: 7-13 days current admission Acuity / Level of Answers: Yes Care: Did the patient have an inpatient admission? 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 Pt admitted for abdominal pain with a history of ulcerative colitis. Recent 07/07 d/c from [facility] was independent with follow up scheduled with [facility]. There are no therapy evals ordered at this time. There are no case management d/c needs identified d/t pt age, marital status, employment status and independence with ADL's prior to admission. Case Management d/c poc: independent with follow up as directed. Case Management available if needs change. Date Signed: 07/14/2018 04:11 PM Electronically Signed By:Iveth Matamoros RN [facility] CM Progress Note CM Note CM Note Notes: Patient plan of care reviewed in am rounds. Per hospital medicine, abdominal films improved No current needs identified. Up independently in room. CM available should needs arise. Plan: Likely to dc to home independently when medically cleared for discharge. Date Signed: 07/17/2018 02:15 PM Electronically Signed By:Leah Thompson RN [facility] CM Progress Note CM Note CM Note Notes: Patient seen in multidisciplinary rounds. Treated for ulcerative colitis. On steroid treatment. Ambulating. Independent with ADL's. CM available should needs arise. Plan: Home independent when medically cleared for discharge to home. Date Signed: 07/18/2018 02:52 PM Electronically Signed By:Leah Thompson RN [facility] CM Progress Note CM Note CM Note Notes: Pt discussed during rounds. She is beginning to improve; she may progress to a full liquids diet tomorrow and is being encouraged to be active as able. She is presently taking Methylprednisolone IV. D/C expected in 1-2 days. She will likely have no CM needs; CM will follow for changes. D/C Plan: Anticipate independent D/C Plan: Anticipate independent. Date Signed: 07/19/2018 01:33 PM Electronically Signed By:Carolyn Alonso [facility] CM Progress Note CM Note CM Note Notes: Chart reviewed for dc plan of care. 53 year old female with ulcerative colitis flare. Patient in independent with ADLS and will likely have no needs upon discharge. Plan: Dc to home independent when medically cleared, Date Signed: 07/21/2018 09:43 AM Electronically Signed By:Leah Thompson RN [facility] CM Progress Note CM Note CM Note Notes: Patient plan of care reviewed in am rounds. 53 year old female with ulcerative colitis flair responding to treatment and is independent with ADL's. No needs identified. CM available should needs arise. Plan: To dc to home no needs when medically cleared for discharge. Date Signed: 07/22/2018 01:50 PM Electronically Signed By:Leah Thompson RN [facility] CM Progress Note CM Note CM Note Notes: RN notified that Humira pen malfunctioned and no medication received. Call to [facility] to report incident. All details provided, lot number and expiration date, dosage, pertinent information about patient all relayed. Per patient she has an RN ambassador that will assist with patient and administration. Plan: Hopeful discharge independently tomorrow. Date Signed: 07/24/2018 04:04 PM Electronically Signed By:Leah Thompson RN Case Management Discharge Plan Note Case Management Discharge Discharge Order Complete? Answers: Yes Patient to Obtain Answers: via Family Medications Transportation Arranged Answers: Family/Friends Discharge Comments Notes: Pt is being discharged independently. Pt will arrange transport. No other concerns noted at this time. Pt will follow-up as indicated. Date Signed: 07/25/2018 09:27 AM Electronically Signed By:NAVJOT Eid Intervention Information
--- NOTE | 2018-07-25 10:44 | SOAPPROG ---
SOAP Progress Note Assessment/Plan: Assessment: 1 MAXIMINO with severe flare. Continued improvement with few formed BM's with small amount of blood. Only 2 BM yesterday and one so far today. Did no get Humira yesterday. 2. Anemia secondary to MAXIMINO flare; stable. Plan: 1. Prednisone 30 mg PO BID on discharge today. 2. Humira injection today as outpatient. My office will arrange drug and make F /U OV with Dr Colon for 2 weeks. Mian Oritz MD [phone] 07/25/18 10:41 Subjective: CC: Feeling better, ready to go home. Objective: Vital Signs Temp Pulse Resp BP Pulse Ox 36.6 C 91 20 98/73 L 95 07/25/18 07:51 07/25/18 07:51 07/25/18 07:51 07/25/18 07:51 07/25/18 07:51 Laboratory Results 07/25/18 04:33 07/25/18 04:33 07/24/18 07/25/18 07/26/18 05:59 05:59 05:59 Intake Total 800 Balance 800 PT 15.4 SEC (12.0-15.0) H 07/13/18 20:35 INR 1.20 (0.83-1.16) H 07/13/18 20:35 Physical Exam - Physical Exam General Appearance: alert, no apparent distress Respiratory: lungs clear, normal breath sounds Abdomen: normal bowel sounds, non-tender, soft Neuro/Psych: alert, normal mood/affect, oriented x 3 ICD10 Worksheet Patient Problems: Problems Problem Status Onset Ulcerative colitis, acute Acute Failure of outpatient treatment Acute
--- NOTE | 2018-07-25 22:18 | GDS ---
[f rep st] DISCHARGE SUMMARY DISCHARGE DIAGNOSES: 1. Acute ulcerative colitis flare. 2. Acute enteropathic Escherichia coli, status post 5 days of intravenous Rocephin. 3. Acute blood loss anemia. 4. Syndrome of inappropriate antidiuretic hormone. 5. Elevated lactate due to dehydration. HISTORY: The patient is a 53-year-old female who was hospitalized for ulcerative colitis and went ho me but failed as she was still having incontinence of bloody stool. She re-presented to the hospital , went back onto IV Solu-Medrol, and she is now finally improving. She will discharge on oral predni sone. She is on Humira as an outpatient. Will self-administer this at home as soon as the drug arri ves in the mail. She received 5 days of IV Rocephin for enteropathic E coli in her stool. She has n ow gradually improved and feels more comfortable going home at this time. DISCHARGE MEDICATIONS: Please see computerized record for full detailed list. NEW MEDICATIONS: Prednisone 30 mg p.o. b.i.d. ADDITIONAL DISCHARGE INSTRUCTIONS: Follow up with Dr. Colon with GI for prednisone taper. Greater than 30 minutes' time was spent arranging this discharge. Patient was seen and examined by loc lobo on the date of discharge. /[id number]/MODL
== END 2018-07-25 11:49 | disposition home or self-care (01) | DRG 386 ==
LOC: F1N 07-14 00:22 → OBSVTOIN 07-14 16:33
PROVIDERS: ADMIT Student in an Organized Health Care Education/Training Program; ATTEND Student in an Organized Health Care Education/Training Program
DX: K51.911 Ulcerative colitis, unspecified with rectal bleeding (principal); E22.2 Syndrome of inappropriate secretion of antidiuretic hormone; D62 Acute posthemorrhagic anemia; B96.20 Unspecified Escherichia coli [E. coli] as the cause of diseases classified elsewhere; E86.0 Dehydration; E44.0 Moderate protein-calorie malnutrition
CPT/HCPCS: 96374; G0378; J0696; J1170; J2270; J2405; J2916; J2920; J2930; J7512; Q9967